=== PATIENT | female | born 1990 | race Two or more races ===

== ENCOUNTER 2018-12-03 09:15 | Emergency (ER) | payer SELFPAY ==
[2018-12-03 09:16] VITALS: BP 103/74; PULSE 67; RESP 17; TEMP 36.8; O2SAT 100; BMI 16.2
--- NOTE | 2018-12-03 09:26 | ED.DCSUM_ITS ---
History of Present Illness Chief Complaint: Lower Extremity Injury Informant: Patient Onset: Days Narrative: Patient presents to the ED with right heel pain. 4 days ago, she broke several of her metatarsal bones and states that this is going to require surgery. 3 days ago, she was seen by orthopedic physician at [facility] in [place]. She states that a cast was placed and since then she has had pain predominantly in her right heel. She describes as a burning pain. She is prescribed oxycodone for pain. Her last dose was around 8-1/2 hours ago. She does have a follow-up appointment with them again tomorrow. Past Medical History - Allergies and Home Meds Allergies/Adverse Reactions: Allergies No Known Allergies Allergy (Verified 12/03/18 09:16) Primary Care Physician: Care Physician,No Primary [Primary Care Provider] - Review of Systems General: Denies: Chills, Fever, Sweats Eyes: Denies: Visual changes - bilaterally, Diplopia ENT: Denies: Rhinorrhea, Sore throat Cardiovascular: Denies: Chest pain, Palpitations Respiratory: Denies: Dyspnea, Cough, Dyspnea on exertion Gastrointestinal: Denies: Abdominal pain, Nausea, Vomiting, Diarrhea, Melena, Hematochezia Genitourinary: Denies: Dysuria, Hematuria, Frequency Musculoskeletal: Reports: - - Heel pain.. Denies: Back pain, Extremity Pain Skin: Denies: Rash, Wounds Neurological: Denies: Headache, Weakness, Numbness Physical Exam Vital Signs/Narrative: Vital Signs Temp Pulse Resp BP Pulse Ox 12/03/18 09:16 98.3 F 67 17 103/74 100 General: Well nourished, Well developed, No Acute Distress Head: Normocephalic, Atraumatic Eyes: Perrl, EOMI ENT: Moist mucous membranes, No rhinorrhea Neck: Supple, Nontender Cardiovascular: Regular rate, Regular rhythm, No murmurs Respiratory: No distress, CTA bilaterally, Chest nontender Abdomen: Soft, Nontender, Nondistended, Normal bowel sounds Back: Nontender, Normal Inspection Extremities: Nontender, No edema, - - Cast extending from the right foot up to just distal to the right knee. It is clean dry and intact. Normal capillary refill of right toes. Normal sensation of right toes. Right toes are pink and warm. Skin: Normal color, No rash Neurological: Alert, Oriented x3, Cranial nerves II-XII grossly intact, Normal Strength, Normal Sensation Psychological: Normal affect, Normal Mood Diagnostic/Tx/Re-eval - Medical Decision Making Presents to the ED with right heel pain due to her cast. She has had issues since cast placement. She has a follow-up appointment tomorrow with her orthopedic physician at [facility]. Cast was removed in the ED. She states that she did speak with the on-call orthopedic physician who states that she may wear her walking boot until tomorrow for her appointment where another cast will be placed. Patient is nonweightbearing. She has a scooter. Her right heel is slightly erythematous and dry after removing the cast, however there is no skin breakdown. Patient will wear her boot and remain nonweightbearing. She was educated on signs/symptoms to return to the ED. She is provided discharge instructions and agreeable to plan. Impression: Right heel pain. Cast pain. Cast removal in ED. Disposition: Home stable ED Disposition - Plan for ED Patient: Disposition: Home or Assisted Living Diagnosis: Heel pain, Encounter for cast removal Instructions: Understanding Heel Pain Referrals: Care Physician,No Primary [Primary Care Provider] -
[2018-12-03 10:09] VITALS: BP 107/79; PULSE 63; RESP 16; O2SAT 99
--- NOTE | 2018-12-03 10:18 | ED.RN ---
CAST REMMOVED PER PA AND PT WITH IMMEDIATE RELEIF OF PRESSURE AND PAIN RT HEEL
== END 2018-12-03 11:44 | disposition home or self-care (01) ==
PROVIDERS: Emergency Provider Physician Assistant
DX: M79.671 Pain in right foot (principal); Z46.89 Encounter for fitting and adjustment of other specified devices
CPT/HCPCS: 99282

== ENCOUNTER 2019-04-05 18:30 | Outpatient (RCR) | payer BC, SELFPAY ==
--- NOTE | 2019-03-22 16:28 | HP.PTEVAL_ITS ---
Patient's Visit Information SRINIVASA PICKETT is a 28 year old F referred to Physical Therapy by DO STARKS with a diagnosis of R foot surgery. Date of Evaluation: 03/22/19 Physical Therapist: Jonathan Alvarenga, PT, ATC - Visit Plan Frequency: 1x/Week Duration: 1 Week Plan: Issue and instruct pt with HEP for R ankle and foot strengthening - Subjective Findings: Pt reports she fell while walking her dog in 2018. Pt reports this resulted in fractures to her 2-3-4th metatarsals. Pt reports she had to have surgery to repaitr the fractures consisting of plates and screws. Pt reports she was NWBing for 8 weeks, and then was placed in a CAM boot for 4 weeks. Pt notes she has been walking around in a shoe now for 4 weeks. Pt feels like she is still improving. Pt reports she continues to swell with prolonged ambulation, and her foot will go numb. Pt reports she has been performing a HEP of band ex's and AROM. Pt reports she is unable to drive at this time secondary to pain. Pt has stairs that she has to negotiate one step at a time. Pt reports she also has to walk slow secondary to pain. No sleep difficulty secondary to pain. - Pain R foot pain Pain Intensity (Out of 10): 0 Pain Intensity Range: 4 - Objective Neuro: B LE sensation is WNL to light touch. Palpation: Incisions are healed. No swelling noted this date. Girth: B feet 46 cm. ROM: L ankle DF= 15, PF= 55; R ankle DF= 0, PF= 55 degrees. MMT: 4/5 throughout in R ankle. L ankle 5/5 throughout - Goals Goal 1:: I with HEP in 1 visit Goal Time Frame: 1 Week - Rehabilitation Potential Physical Therapy Diagnosis: R foot pain, limited ROM, and weakness secondary to R foot surgery Rehabilitation Potential: Good - Anticipated Interventions Patient/Client Instruction: Educate patient on: Condition, Plan of Care For the Purpose of:: To improve self management Therapeutic Exercise to Include: Strength training, Endurance training, Balance training, Flexibilty training, Active ROM For the Purpose of:: To decrease pain, To increase ROM, To improve muscle performance and motor function Cryotherapy (ice pack, ice massage): Yes For the Purpose of:: To decrease pain Thank you for the opportunity to evaluate your patient. For Medicare and Medicare HMO plans, please review the plan of care and approve it. It will need to be FAXED BACK to us at [phone] for Medicare purposes. For Medicare only, by signing this I certify the plan of care. Please let me know if there are questions or concerns regarding this plan of care. Physician Signature: ____Date:
--- NOTE | 2019-06-07 18:59 | HP.PT.NRP ---
SRINIVASA PICKETT was seen in my office for initial evaluation on 03/22/19. The following Plan of Care was established for this patient: Initial Frequency: 1x/Week Initial Duration: 1 Week Patient/Client Instruction: Educate patient on: Condition, Plan of Care For the Purpose of:: To improve self management Therapeutic Exercise to Include: Strength training, Endurance training, Balance training, Flexibilty training, Active ROM For the Purpose of:: To decrease pain, To increase ROM, To improve muscle performance and motor function Cryotherapy (ice pack, ice massage): Yes For the Purpose of:: To decrease pain This patient was last seen in our office . Pertinent comments regarding their Physical therapy will appear below: Pt has had 2 PT visits for her R foot pain through the date of 04/05/2019. Pt has not returned through todays date and is therefore discontinued at this time. At this point I will be discontinuing this patient from physical therapy. I would be happy to see this patient again in the future if found appropriate by the physician. Thank you! Jonathan Alvarenga, PT, ATC
== END 2019-04-05 19:00 | disposition home or self-care (01) ==
LOC: PT 18:30
DX: Z98.890 Other specified postprocedural states (principal); S92.321D Displaced fracture of second metatarsal bone, right foot, subsequent encounter for fracture with routine healing; S92.331D Displaced fracture of third metatarsal bone, right foot, subsequent encounter for fracture with routine healing; S92.341D Displaced fracture of fourth metatarsal bone, right foot, subsequent encounter for fracture with routine healing
CPT/HCPCS: 97110; 97161; 97530

== ENCOUNTER → 2021-10-19 | Outpatient (CLI) | payer OTHER, SELFPAY ==
[2021-10-19 12:01] LABS: Absolute Lymphocyte Count 0.97 X10^3/uL (0.83-4.51); Absolute Neutrophil Count 2.3 X10^3/uL (2.0-7.7); Basophil# 0.01 X10^3/uL; Basophil% 0.3 % (0-1); Hematocrit 37.3 % (37-47); Hemoglobin 12.1 g/dL (12.0-15.0); Lymphocyte # 0.97 X10^3/ul (0.83-4.51); Lymphocyte % 26.6 % (19-41); Mean Corp Hgb Conc 32.4 g/dL (32-36); Mean Corpuscular Hgb 28.1 pg (27.0-32.0); Mean Corpuscular Volume 86.5 fL (81-99); Mean Platelet Vol. 10.8 fl (6.2-12.0); Monocyte# 0.39 X10^3/uL; Monocyte% 10.7 % (0-10); NRBC Flagged by Analyzer 0 % (0-5); Neutrophil # 2.26 X10^3/uL (2.7-7.7); Neutrophil % 62.1 % (47-70); Platelet Count 237 K/mm3 (150-450); RBC Distribution Width CV 12.4 % (11.6-14.6); RBC Distribution Width SD 39.9 fl (35.1-43.9); Red Blood Count 4.31 M/mm3 (4.2-5.4); White Blood Count 3.6 K/mm3 (4.4-11.0)
[2021-10-19 13:01] LABS: ALB/GLOB Ratio 0.7 RATIO (0.9-2.4); AST(SGOT) 21 U/L (15-37); Alanine Aminotransfer ALT/SGPT 15 U/L (13-56); Albumin, Serum 3.5 g/dL (3.2-5.0); Alkaline Phosphatase 66 U/L (45-117); Anion Gap 5 (5-15); BUN 9 mg/dL (7-18); BUN/Creat Ratio 11.5 RATIO (10-20); Calcium,Total 8.5 mg/dL (8.5-10.1); Chloride 107 mmol/L (98-107); Creatinine, Serum 0.78 mg/dL (0.55-1.02); EST Glomerular Filtration Rate 91 mL/min (>60); Est Glom Filt Rate - Afr Amer 110 mL/min (>60); Globulin 5.2 g/dL (2.2-4.2); Glucose 92 mg/dL (74-106); Potassium 3.9 mmol/L (3.5-5.1); Protein, Total 8.7 g/dL (6.4-8.2); Sodium Level 137 mmol/L (136-145); Thyroid Stim Hormone (TSH) 0.45 uIU/mL (0.358-3.74)
== END | disposition home or self-care (01) ==
LOC: BIMLAB 11:26
PROVIDERS: PCP Internal Medicine; Referring Provider Internal Medicine; Visit Provider Internal Medicine
DX: R59.0 Localized enlarged lymph nodes (principal); R50.9 Fever, unspecified
CPT/HCPCS: 36415; 80053; 84443; 85025

== ENCOUNTER → 2021-10-22 | Outpatient (CLI) | payer OTHER, SELFPAY ==
--- NOTE | 2021-10-22 16:02 | US_ITS ---
EXAM: US SOFT TISSUES OF THE NECK CLINICAL INDICATION: lymphadenopathy TECHNIQUE: Real-time ultrasound scan of the soft tissues of the neck with image documentation. This report was created using [employer] report generation technology. COMPARISON: None. FINDINGS: SOFT TISSUES: Normal. No abscess. No foreign body. LYMPH NODES: Multiple large left posterior cervical lymph nodes are identified with normal vianca suggestive of lymphoproliferative disorder. Largest node measures 4.2 x 2.2 cm. US/Head/Neck Soft Tissue IMPRESSION: Posterior left cervical lymphadenopathy consistent with lymphoproliferative disorder. Follow-up recommended. Electronically Signed: Killian Camilo MD at 16:52 EDT ,
== END | disposition home or self-care (01) ==
PROVIDERS: PCP Internal Medicine; Referring Provider Internal Medicine; Visit Provider Internal Medicine
DX: R59.0 Localized enlarged lymph nodes (principal)
CPT/HCPCS: 76536

== ENCOUNTER 2021-10-24 18:16 | Emergency (ER) | payer OTHER, SELFPAY ==
[2021-10-24 18:18] VITALS: BP 92/68; PULSE 74; RESP 22; TEMP 37.4; O2SAT 100; BMI 16.1
--- NOTE | 2021-10-24 18:33 | EDS_ITS ---
HPI History of Present Illness Chief Complaint: Fever Detail of Chief Complaint: Fever that started 2 weeks ago Informant: patient Narrative Narrative: Patient presents to the emergency department with a fever x2 weeks. Patient has been seen by her primary care physician because she has had swollen lymph nodes to the left side of her neck. Patient had blood work that apparently was unremarkable. Patient also had a monotest last week that was negative. Patient had an ultrasound that showed lymph low proliferative disorder and patient was referred to hematology for follow-up. Significant other insisted patient be evaluated in the ER today because she has had temperatures between 100 101 despite ibuprofen and Tylenol. Patient started with a little bit of a cough yesterday. She denies sore throat. She denies urinary symptoms. Patient denies rashes. No family history of autoimmune disorders. Patient has had the COVID-vaccine. Patient denies sick contacts. Prior similar symptoms: No PFSH PFSH Medical History (Updated 10/24/21 @ 20:[address] Jasen Bennett DO) History of anemia as a child Home Medications amoxicillin 500 mg tablet 500 mg PO TID #30 tabs 10/24/21 [Rx Last Taken Unknown] Allergy/AdvReac Type Severity Reaction Status Date / Time No Known Allergies Allergy Verified 10/19/21 10:29 Family History Grandmother Arthritis Heart disease Myocardial infarction Grandfather Arthritis Diabetes Mother Thyroid disorder Surgical History H/O foot surgery Social History (Updated 10/19/21 @ 10:[address] Halle Darby MD) household members: spouse housing: house current occupational status: employed current occupation: [employer] sexually active: Yes Smoking Status: Never smoker Electronic Cigarette Use: not used alcohol intake: current alcohol intake frequency: holidays/special occasions only substance use type: does not use what type of physical activity do you participate in: walking and weight training frequency: 3-4 times per week seatbelt use: always do you feel safe at home: Yes ROS ROS ED ROS Narrative Fatigue Review of Systems ROS Unobtainable: other Constitutional Constitutional ED: Reports fever(s) and lethargy; Denies chills, sweats or weight loss Eyes Eyes: Denies blurry vision, change in vision or diplopia ENT ENT ED: Reports other Details: Swollen lymph nodes ; Denies rhinorrhea or sore throat Cardiovascular Cardiovascular: Denies chest pain, orthopnea or racing heartbeat Respiratory/Chest Respiratory/Chest: Reports cough; Denies dyspnea, dyspnea on exertion, orthopnea or sputum Gastrointestinal Gastrointestinal: Denies abdominal pain, diarrhea, nausea or vomiting Genitourinary Genitourinary ED: Denies dysuria, hematuria or urinary frequency Musculoskeletal Musculoskeletal: Denies arthralgias, back pain, myalgias or neck pain Integumentary Denies abscess, Abrasions or rash Neurologic Neurologic: Denies headache(s) or weakness Psychiatric Psychiatric: Denies anxiety, depression or suicidal thoughts Endocrine Endocrinology: Denies polydipsia, polyphagia or polyuria Hematologic/Lymphatic Hematologic/Lymphatic: Denies easy bleeding, easy bruising or lymphadenopathy Allergic/Immunologic Allergic/Immunologic ED: Denies mouth swelling, tongue swelling or urticaria EXAM Physical Exam Const Vital Signs: 10/24/21 18:18 10/24/21 18:47 Temperature 99.3 F H Temperature Source Oral Pulse Rate 74 Respiratory Rate 22 H Respiratory Effort Normal Non-Labored Respiratory Pattern Normal Blood Pressure 92/68 Blood Pressure Mean 76 Pulse Ox 100 Oxygen Delivery Method Room Air Positive well nourished and well developed General Appearance ED: well developed and NAD HEENT Reports TM's clear and moist mucous membranes normocephalic and atraumatic; Negative for trauma or tenderness Tympanic Membrane ED: Yes TM's clear Eyes PERRL and EOMs intact bilaterally General Eye ED: Negative for pale conjunctiva or scleral icterus Neck supple and no JVD Neck Narrative: Bilateral posterior cervical lymphadenopathy noted General: Negative for tenderness Chest Wall inspection of chest normal and palpation of chest normal Chest: Negative for tenderness Resp normal respiratory effort and clear to auscultation bilaterally Effort and Inspection: Negative for respiratory distress or pain with movement Auscultation: Negative for rhonchi, wheezes or diminished lung sounds Cardio regular rate, regular rhythm, S1 normal heart sound, S2 normal heart sound and no murmurs Peripheral Pulses: pulses 2+ throughout GI normal to inspection, nondistended, normoactive bowel sounds, soft to palpation, non-tender, non-distended and no masses Back/Spine no CVA tenderness and no thoracic nor lumbar tenderness Extremity normal to inspection General Extremety ED: Negative for edema General Extremity: Negative for edema Neuro oriented x3, CN's II-XII intact bilaterally, no sensory deficits noted and gait normal Sensorium / Orientation: awake, alert, oriented to person, oriented to place and oriented to time Motor Exam: strength 5/5 throughout and strength abnormal Psych mental status grossly normal Skin no rashes or lesions noted and no wounds MDM MDM MDM Narrative Medical decision making narrative: IV line established on arrival. CBC with differential showed a depressed white count of 3.7. Chemistries unremarkable. Kemper screen was negative. Influenza screen was negative and COVID screen was negative. Urinalysis was normal. Chest x-ray was normal. This point etiology of her fever and lymphadenopathy is unclear. I will empirically start patient on antibiotics. We will treat with amoxicillin. Patient awaiting follow-up with specialist to potentially have biopsy of her lymph nodes. Patient is nontoxic-appearing. She denies any tick bites or bull's-eye type rashes. Patient will be discharged to home stable condition Lab Data Attestation: I reviewed the patient's lab results. Labs: Laboratory Results - last 24 hr 10/24/21 10/24/21 10/24/21 18:47 18:47 18:47 WBC 3.7 L RBC 3.84 L Hgb 10.5 L Hct 32.0 L MCV 83.3 MCH 27.3 MCHC 32.8 RDW Std Deviation 36.8 RDW Coeff of Lisa 12.1 Plt Count 211 MPV 10.5 Immature Gran % (Auto) 0.300 Neut % (Auto) 58.2 Lymph % (Auto) 32.9 Kemper % (Auto) 8.1 Eos % (Auto) 0.0 Baso % (Auto) 0.5 Absolute Neuts (auto) 2.2 Absolute Lymphs (auto) 1.22 Nucleated RBC % 0 Differential Comment SCANNED Atypical Lymphocytes RARE Platelet Estimate ADEQUATE Ovalocytes 1+ Sodium 136 Potassium 3.9 Chloride 106 Carbon Dioxide 25.0 Anion Gap 5 BUN 10 Creatinine 0.87 Estim Creat Clear Calc 64.48 Est GFR (MDRD) Af Amer 97 Est GFR (MDRD) Non-Af 80 BUN/Creatinine Ratio 11.5 Glucose 102 Calcium 8.6 Urine Color Urine Clarity Urine pH Ur Specific [place] Urine Protein Urine Glucose (UA) Urine Ketones Urine Occult Blood Urine Nitrite Urine Bilirubin Urine Urobilinogen Ur Leukocyte Esterase Urine RBC Urine WBC Ur Squamous Epith Cells Urine Bacteria Urine Mucus Monoscreen Negative 10/24/21 18:53 WBC RBC Hgb Hct MCV MCH MCHC RDW Std Deviation RDW Coeff of Lisa Plt Count MPV Immature Gran % (Auto) Neut % (Auto) Lymph % (Auto) Kemper % (Auto) Eos % (Auto) Baso % (Auto) Absolute Neuts (auto) Absolute Lymphs (auto) Nucleated RBC % Differential Comment Atypical Lymphocytes Platelet Estimate Ovalocytes Sodium Potassium Chloride Carbon Dioxide Anion Gap BUN Creatinine Estim Creat Clear Calc Est GFR (MDRD) Af Amer Est GFR (MDRD) Non-Af BUN/Creatinine Ratio Glucose Calcium Urine Color Yellow Urine Clarity Sl. Cloudy Urine pH 6.5 Ur Specific [place] 1.010 Urine Protein 100 H Urine Glucose (UA) Normal Urine Ketones Negative Urine Occult Blood Negative Urine Nitrite Negative Urine Bilirubin Negative Urine Urobilinogen Normal Ur Leukocyte Esterase Negative Urine RBC 0 SEEN Urine WBC 0 SEEN Ur Squamous Epith Cells 0-5 SEEN Urine Bacteria 0 SEEN Urine Mucus 0 SEEN Monoscreen Radiography Diagnostic Testing: Clinical Impression(s) from Imaging Studies Chest X-Ray 10/24/21 18:58 IMPRESSION: Normal x-ray examination of the chest. Electronically Signed: Robbie Thomposn MD at 19:14 EDT , Discharge Plan Triage Chief Complaint: Fever ED Provider: Jasen Bennett Dx/Rx/DC Orders Clinical Impression: Cervical lymphadenopathy, Fever Instructions: Lymphadenopathy, ED FUO Adult Prescriptions: New amoxicillin 500 mg tablet 500 mg PO TID Qty: 30 0RF Primary Care Provider: Halle Darby Referrals: Halle Darby MD [Primary Care Provider] - 3-5 Days Disposition Disposition: Home, Self Care
[2021-10-24] MEDS: 0.9% Normal Saline 1,000 ML 1000 ML IV (18:47)
[2021-10-24 18:58] LABS: Absolute Lymphocyte Count 1.22 X10^3/uL (0.83-4.51); Absolute Neutrophil Count 2.2 X10^3/uL (2.0-7.7); Basophil# 0.02 X10^3/uL; Basophil% 0.5 % (0-1); Hemoglobin 10.5 g/dL (12.0-15.0); Lymphocyte # 1.22 X10^3/ul (0.83-4.51); Lymphocyte % 32.9 % (19-41); Mean Corp Hgb Conc 32.8 g/dL (32-36); Mean Corpuscular Hgb 27.3 pg (27.0-32.0); Mean Corpuscular Volume 83.3 fL (81-99); Mean Platelet Vol. 10.5 fl (6.2-12.0); Monocyte% 8.1 % (0-10); NRBC Flagged by Analyzer 0 % (0-5); Neutrophil # 2.16 X10^3/uL (2.7-7.7); Neutrophil % 58.2 % (47-70); POSITIVE MORPHOLOGY YES; Platelet Count 211 K/mm3 (150-450); RBC Distribution Width CV 12.1 % (11.6-14.6); RBC Distribution Width SD 36.8 fl (35.1-43.9); Red Blood Count 3.84 M/mm3 (4.2-5.4); White Blood Count 3.7 K/mm3 (4.4-11.0)
--- NOTE | 2021-10-24 18:58 | RAD_ITS ---
STUDY: X-RAY CHEST REASON FOR EXAM: Female, 31 years old. cough TECHNIQUE: Single AP portable view of the chest. COMPARISON: None. FINDINGS: The lungs are clear and expanded. There is no demonstrated pleural abnormality. Normal size heart. Normal mediastinum and vianca. Normal visualized pulmonary arteries. Normal visualized aortic arch and descending thoracic aorta. Normal visualized thoracic spine. Normal visualized ribs, clavicles, and shoulders. There is no demonstrated abnormality of the visualized soft tissue structures of the upper abdomen. RAD/Chest 1 View (Portable) IMPRESSION: Normal x-ray examination of the chest. Electronically Signed: Robbie Thompson MD at 19:14 EDT ,
[2021-10-24 19:00] LABS: Differential Indicated SCAN CRITERIA MET
[2021-10-24 19:01] LABS: Bacteria 0 SEEN /hpf (None Seen); Mucous, Urine 0 SEEN /hpf (<or=2+); Red Blood Cells-Urine 0 SEEN /hpf (0-5); White Blood Cells 0 SEEN /hpf (0-5)
[2021-10-24 19:11] LABS: Internal QC Validated? YES +Cl - CLEAR BKGD; Monotest Negative (Negative)
[2021-10-24 19:15] LABS: Anion Gap 5 (5-15); BUN 10 mg/dL (7-18); BUN/Creat Ratio 11.5 RATIO (10-20); Calcium,Total 8.6 mg/dL (8.5-10.1); Chloride 106 mmol/L (98-107); Creatinine, Serum 0.87 mg/dL (0.55-1.02); EST Glomerular Filtration Rate 80 mL/min (>60); Est Glom Filt Rate - Afr Amer 97 mL/min (>60); Estimated Creatinine Clearance 64.48 ml/min; Glucose 102 mg/dL (74-106); Potassium 3.9 mmol/L (3.5-5.1); Sodium Level 136 mmol/L (136-145)
[2021-10-24 19:21] LABS: Color, Urine Yellow (Yellow); Glucose, Dipstick Normal (Normal); Ketone-Dipstick Negative (Negative); Leukocyte Esterase-Dipstick Negative /ul (Negative); Nitrite-Dipstick Negative (Negative); Occult Blood-Urine Negative /ul (Negative); Protein-Dipstick 100 mg/dl (Negative); Urine Bilirubin Dipstick Negative (Negative); Urine Clarity Sl. Cloudy (Clear); Urine Urobilinogen Normal (Normal); Urine pH 6.5 (5.0 - 8.0)
[2021-10-24 19:37] LABS: Atypical Lymphocyte RARE %; Differential Comment SCANNED
[2021-10-24 19:38] LABS: Ovalocyte 1+; Platelet Estimate ADEQUATE (ADEQ)
[2021-10-24 19:38] LABS: Squamous Epithelial Cells - UA 0-5 SEEN /hpf (5-10)
[2021-10-24] MEDS: AMOXICILLIN 500 MG CAPSULE PO (20:42)
[2021-10-24 20:43] VITALS: BP 90/56; PULSE 59; RESP 16; TEMP 36.6; O2SAT 100
== END 2021-10-24 20:46 | disposition home or self-care (01) ==
PROVIDERS: Emergency Provider Emergency Medicine; PCP Internal Medicine; Visit Provider Emergency Medicine
DX: R59.0 Localized enlarged lymph nodes (principal); R50.9 Fever, unspecified
CPT/HCPCS: 36415; 71045; 80048; 81001; 85025; 86308; 87040; 87428; 96360; 96361; 99284; J7030; A4216

== ENCOUNTER → 2021-10-30 | Outpatient (CLI) | payer OTHER, SELFPAY ==
--- NOTE | 2021-10-30 13:22 | CT_ITS ---
STUDY: CT SOFT TISSUE NECK WITH CONTRAST REASON FOR EXAM: Female, 31 years old. Weight loss, cervical lymphadenopathy RADIATION DOSAGE (If Supplied By Facility): CTDIvol = ( 10.82 ) mGy, DLP = ( 314.95 ) mGycm TECHNIQUE: The patient was scanned in a multi-detector CT scanner. High resolution transaxial imaging was performed following intravenous administration of IV 100mL Isovue-300. Sagittal and coronal images were reconstructed. Individualized dose optimization techniques were used for this CT. COMPARISON: Comparison is made with prior CT scan of the neck dated 10/22/2021. FINDINGS: Normal bilateral parotid glands. Normal bilateral supervisor plastic sheets spaces. Normal bilateral parapharyngeal spaces. Normal bilateral carotid spaces. Normal bilateral sublingual and submandibular glands and spaces. Normal visualized nasopharynx. Normal retropharyngeal space. Normal perivertebral space. Normal visualized bilateral faucial tonsils. The visualized tongue, tongue base and oropharynx are normal. Multiple enlarged enhancing lymph nodes seen in the posterior triangle of the right and left side of the neck. The largest on the left side measures 2.1 cm x 1.3 cm. The largest on the right side measures 1.5 cm x 0.8 cm. This also is about 1.5 cm x 1.6 cm lymph node in the anterior triangle of the left-sided neck adjacent to the anterior aspect of the left sternocleidomastoid mastoid muscle. There is no demonstrated solid or cystic mass lesion. There is no abnormal contrast enhancement. Normal epiglottis, bilateral vallecula and hypopharynx. The pre-epiglottic and paraglottic adipose spaces are normal. Normal visualized bilateral piriform sinuses, aryepiglottic folds, vocal cords, and arytenoid-cricoid articulations. Normal subglottic trachea. Normal bilateral lobes of the thyroid gland. Normal visualized pulmonary apices. Normal visualized paranasal sinuses. Normal visualized cervical spine. CT/Soft Tissue Neck WITH Contrast IMPRESSION: Cervical lymphadenopathy as described. There is contrast enhancement. Electronically Signed: Sahil Gay MD at 14:11 EDT ,
--- NOTE | 2021-10-30 13:22 | CT_ITS ---
STUDY: CT CHEST WITH CONTRAST REASON FOR EXAM: Female, 31 years old. Weight loss, lymphadenopathy RADIATION DOSAGE (If Supplied By Facility): CTDIvol = ( 10.82 ) mGy, DLP = ( 314.95 ) mGycm TECHNIQUE: Transaxial imaging was performed following intravenous administration of IV 100mL Isovue-300. Multiplanar coronal and sagittal images were reformatted. Individualized dose optimization techniques were used for this CT. COMPARISON: No relevant priors. FINDINGS: CHEST The lungs are normal. There is no demonstrated pleural abnormality. Normal heart and pericardium. Normal mediastinum. Normal hilar regions. Normal unenhanced pulmonary arteries. Normal aorta arch and descending thoracic aorta. Normal osseous structures. There is no demonstrated abnormality of the visualized upper abdomen. CT/Chest WITH Contrast IMPRESSION: Normal enhanced CT chest T abdomen examination. Electronically Signed: Sahil Gay MD at 14:13 EDT ,
== END | disposition home or self-care (01) ==
LOC: CT 13:20
PROVIDERS: PCP Internal Medicine; Referring Provider Internal Medicine; Visit Provider Internal Medicine
DX: R59.0 Localized enlarged lymph nodes (principal); R50.9 Fever, unspecified; R63.4 Abnormal weight loss
CPT/HCPCS: 70491; 71260; Q9967

== ENCOUNTER → 2021-11-11 | Outpatient (CLI) | payer OTHER, SELFPAY ==
--- NOTE | 2021-11-11 | ASPOS_PTH ---
PATIENT: SRINIVASA PICKETT LOC: [facility] U#:[id number] AGE/SX: 31/F ROOM: RE11/11/[address]: Dr. Richard Solis MD : 1990 BED: DIS: 11/11/2021 SPEC #: [id number] RECD: 11/11/21 10:51 STATUS: VIDA LAY #: [id number] KEVYN: 11/11/21 00:[address]: Richard Solis DEPT: CYTOLOGY RECD BY: Nancy Newton ENTERED: 11/11/21 10:52 SP TYPE: ASP HERE OTHR DR: Dr. Halle Darby MD Tissues: Lymph node of neck, NOS Procedures: Surgery Specimen Level IV Cytology Other Fine Needle Asp on Site HEADER OPERATION: Fine needle aspiration left posterior neck mass PRE-OP DIAGNOSIS: Left posterior neck mass TISSUE SUBMITTED: Left posterior neck mass FNA DIAGNOSIS CYTOLOGY Left posterior neck mass, fine needle aspiration (smears and cell block): Lymph node tissue with polymorphous lymphocytes. See comment. SJ:bj 11/13/2021 COMMENT The specimen is evaluated at the time of FNA by Dr. Gomez. Immediate Evaluation = Polymorphous lymphocytes present. Flow cytometry study from [facility] shows no evidence of B-cell or T-cell lymphoma. Please see the complete report in EMR. Correlation with clinical findings and appropriate follow up are necessary. Incisional or excisional biopsy of the mass is suggested if clinically indicated. Case has been reviewed in consultation with Dr. Gomez who concurs with the above diagnosis. IDC:AM CYTOLOGY STUDY Slides are reviewed. CYTOLOGY GROSS Received is 30 ml of CytoLyt labeled with the patient's name, and designated left posterior neck mass. Two imprints and two paps are made from the submitted fluid and the rest is added to CytoLyt for cell block preparation. Submitted for cytology study. / AM:bj 11/11/2021 TC:5 CPT: 93468, 57342, 65832
== END | disposition home or self-care (01) ==
LOC: LAB 09:30
PROVIDERS: PCP Internal Medicine; Referring Provider Otolaryngology; Visit Provider Otolaryngology
DX: R59.9 Enlarged lymph nodes, unspecified (principal)
CPT/HCPCS: 10021; 88161; 88305; 88307

== ENCOUNTER → 2021-12-09 | Outpatient (CLI) | payer OTHER, SELFPAY ==
--- NOTE | 2021-12-09 10:50 | MRI_ITS ---
STUDY: MRI BRAIN WITH AND WITHOUT CONTRAST REASON FOR EXAM: Female, 31 years old. R eye visual impairment; headache; Kikuchi disease TECHNIQUE: Standardized multiplanar fat and water weighted pulse sequences were obtained. IV 9 cc clariscan was administered for the contrast portion of the examination. COMPARISON: None. FINDINGS: Normal size of the ventricles and extra-axial spaces for the patient''s age. There is mild periventricular white matter disease with tiny foci of restricted diffusion in the left frontal, parietal and right parietal lobes.. There are numerous punctate foci of increased signal intensity within the basal ganglia and caudate nuclei bilaterally which may be consistent with subacute hemorrhage. There is diffusely increased signal intensity within the basal ganglia and caudate nuclei bilaterally. Normal thalami. There is no extra-axial fluid accumulation. Normal flow voids within the major intracranial circulation suggesting patency by spin echo criteria. Normal venous enhancement. There is no enhancing intra-axial or extra-axial abnormality. Normal sella turcica, pituitary gland, infundibular stalk, optic chiasm and hypothalamus. Normal tectal plate and pineal gland. Normal midbrain, chung and medulla. Normal cerebellum. Normal basal cisterns. Normal bilateral temporal bones. Normal bilateral internal auditory canals. No demonstrated orbital abnormality, within the constraints of a routine brain study. Normal visualized paranasal sinuses. Normal calvarium and skull base. Normal visualized soft tissue structures. Normal visualized upper cervical spine. MRI/Brain W/WO Contrast IMPRESSION: Bilateral diffuse increased signal within the basal ganglia and caudate nuclei in association with diffuse punctate foci of methemoglobin on T1 consistent with subacute hemorrhage.. There is also mild periventricular white matter disease with tiny foci of restricted diffusion bilaterally. 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
== END | disposition home or self-care (01) ==
PROVIDERS: PCP Internal Medicine; Visit Provider Psychiatry & Neurology Neurology
DX: H54.7 Unspecified visual loss (principal); R51.9 Headache, unspecified
CPT/HCPCS: 70553; A9575

== ENCOUNTER → 2021-12-31 | Outpatient (CLI) | payer OTHER, SELFPAY ==
--- NOTE | 2021-12-31 15:57 | MRI_ITS ---
STUDY: MRA OF THE HEAD WITHOUT CONTRAST REASON FOR EXAM: Female, 31 years old. Kikuchi disease; Abnl MRI; eval for vasculitis TECHNIQUE: 3-D [id number] (TOF) imaging was performed with MIPs. The study was performed unenhanced. COMPARISON: None. FINDINGS: Normal bilateral petrous carotid arteries. Normal right cavernous carotid artery with a normal supraclinoid bifurcation. Normal left cavernous carotid artery with a normal supraclinoid bifurcation. Normal right A1 segments of the anterior cerebral artery. Normal left A1 segments of the anterior cerebral artery. Normal intact anterior communicating artery (ACOM). Normal bilateral A2 segments of the anterior cerebral arteries. Normal right M1 and M2 segments of the middle cerebral arteries, with a normal M1 bifurcation. Normal left M1 and M2 segments of the middle cerebral arteries, with a normal M1 bifurcation. Right posterior communicating artery not visualized consistent with normal variant). Normal left posterior communicating artery (PCOM). Normal bilateral vertebral arteries. Normal basilar artery with a normal basilar bifurcation. The visualized bilateral superior cerebellar (SCA) arteries are normal. Normal right posterior cerebral artery. Hypoplastic left posterior cerebral artery with regional perfusion augmentation by left posterior communicating artery. There is no demonstrated aneurysm of the [place]. There is no major vessel occlusion or hemodynamically significant stenosis. There is no demonstrated abnormality of the visualized brain. MRI/MRA Head ONLY without Contrast IMPRESSION: Normal MRA of the head Electronically Signed: Shaji Mandujano MD at 17:23 EDT ,
--- NOTE | 2021-12-31 16:04 | MRI_ITS ---
STUDY: MRI BRAIN WITH AND WITHOUT CONTRAST REASON FOR EXAM: Female, 31 years old. Kikuchi dz; follow-up microhemorrhages/white matte TECHNIQUE: Standardized multiplanar fat and water weighted pulse sequences were obtained. IV 9CC IVYESCLARISC was administered for the contrast portion of the examination. COMPARISON: 12/09/2021 FINDINGS: Normal size of the ventricles and extra-axial spaces for the patient''s age. There is very mild periventricular white matter ischemic disease without evidence for restricted diffusion at this time.. Diffusely increased signal intensity noted within the basal ganglia and caudate nuclei bilaterally in association with subtle foci of methemoglobin consistent with microhemorrhage. There is no extra-axial fluid accumulation. Normal flow voids within the major intracranial circulation suggesting patency by spin echo criteria. Normal venous enhancement. No significant enhancement demonstrated following contrast administration Normal sella turcica, pituitary gland, infundibular stalk, optic chiasm and hypothalamus. Normal tectal plate and pineal gland. Normal midbrain, chung and medulla. Normal cerebellum. Normal basal cisterns. Normal bilateral temporal bones. Normal bilateral internal auditory canals. No demonstrated orbital abnormality, within the constraints of a routine brain study. Normal visualized paranasal sinuses. Normal calvarium and skull base. Normal visualized soft tissue structures. Normal visualized upper cervical spine. Comparison with prior exam demonstrates similar findings although there is slightly less intense signal intensity noted within the basal ganglia when compared with previous exam There is reduction in the restricted diffusion in previously noted white matter lesions MRI/Brain W/WO Contrast IMPRESSION: Persistent findings consistent with known KIKUCHI disease with reduction of signal intensity in the basal ganglia when compared with prior exam. No significant enhancement following contrast demonstration There has been resolution of the restricted diffusion within the white matter lesions noted on prior study Electronically Signed: Shaji Mandujano MD at 17:21 EDT ,
== END | disposition home or self-care (01) ==
PROVIDERS: PCP Internal Medicine; Visit Provider Psychiatry & Neurology Neurology
DX: I88.1 Chronic lymphadenitis, except mesenteric (principal); Z86.73 Personal history of transient ischemic attack (TIA), and cerebral infarction without residual deficits
CPT/HCPCS: 70544; 70553; A9575

== ENCOUNTER → 2022-03-09 | Outpatient (CLI) | payer OTHER, SELFPAY ==
[2022-03-09 18:03] LABS: Absolute Lymphocyte Count 1.63 X10^3/uL (0.83-4.51); Absolute Neutrophil Count 5.3 X10^3/uL (2.0-7.7); Basophil# 0.02 X10^3/uL; Basophil% 0.3 % (0-1); Eosinophil# 0.05 X10^3/uL; Eosinophils% 0.6 % (0-5); Hematocrit 38.7 % (37-47); Hemoglobin 12.3 g/dL (12.0-15.0); Lymphocyte # 1.63 X10^3/ul (0.83-4.51); Mean Corp Hgb Conc 31.8 g/dL (32-36); Mean Corpuscular Hgb 27.3 pg (27.0-32.0); Mean Corpuscular Volume 85.8 fL (81-99); Mean Platelet Vol. 10.5 fl (6.2-12.0); NRBC Flagged by Analyzer 0 % (0-5); Neutrophil # 5.34 X10^3/uL (2.7-7.7); Neutrophil % 68.7 % (47-70); Platelet Count 382 K/mm3 (150-450); RBC Distribution Width CV 12.4 % (11.6-14.6); RBC Distribution Width SD 38.7 fl (35.1-43.9); Red Blood Count 4.51 M/mm3 (4.2-5.4); White Blood Count 7.8 K/mm3 (4.4-11.0)
[2022-03-09 18:08] LABS: Color, Urine Yellow (Yellow); Glucose, Dipstick Normal (Normal); Ketone-Dipstick 5 mg/dl (Negative); Leukocyte Esterase-Dipstick 25 /ul (Negative); Nitrite-Dipstick Negative (Negative); Occult Blood-Urine Negative /ul (Negative); Protein-Dipstick 15 mg/dl (Negative); Specific Gravity, Urine 1.015 (1.002-1.030); Urine Bilirubin Dipstick Negative (Negative); Urine Clarity Sl. Cloudy (Clear); Urine Urobilinogen Normal (Normal); Urine pH 6.5 (5.0 - 8.0)
[2022-03-09 18:32] LABS: ALB/GLOB Ratio 0.9 RATIO (0.9-2.4); AST(SGOT) 18 U/L (15-37); Alanine Aminotransfer ALT/SGPT 23 U/L (13-56); Albumin, Serum 3.7 g/dL (3.2-5.0); Alkaline Phosphatase 63 U/L (45-117); Anion Gap 7 (5-15); BUN 14 mg/dL (7-18); BUN/Creat Ratio 16.4 RATIO (10-20); CRP < 2.90 mg/L (0.0-3.0); Chloride 104 mmol/L (98-107); Creatinine, Serum 0.85 mg/dL (0.55-1.02); EST Glomerular Filtration Rate 82 mL/min (>60); Est Glom Filt Rate - Afr Amer 99 mL/min (>60); Globulin 4.3 g/dL (2.2-4.2); Glucose 83 mg/dL (74-106); Potassium 3.7 mmol/L (3.5-5.1); Sodium Level 138 mmol/L (136-145)
[2022-03-09 18:33] LABS: Erythrocyte Sedimentation Rate 27 mm/hr (0-30); Protein, Urine (Random) 37.4 mg/dL (<11.9); Protein:Creat Ratio 181 mg/g CRE (0-200)
[2022-03-12 18:27] LABS: Complement C3 119 mg/dL (82-167)
[2022-03-12 19:21] LABS: Anti-dsDNA Ab 13 IU/mL (0-9)
== END | disposition home or self-care (01) ==
LOC: MTLAB 14:48
PROVIDERS: PCP Internal Medicine; Referring Provider Internal Medicine Rheumatology; Visit Provider Internal Medicine Rheumatology
DX: I88.1 Chronic lymphadenitis, except mesenteric (principal); M32.9 Systemic lupus erythematosus, unspecified; D89.0 Polyclonal hypergammaglobulinemia; R50.9 Fever, unspecified
CPT/HCPCS: 36415; 80053; 81002; 82570; 84156; 85025; 85652; 86140; 86160; 86225

== ENCOUNTER → 2022-06-29 | Outpatient (CLI) | payer OTHER, SELFPAY ==
[2022-06-29 18:11] LABS: Absolute Lymphocyte Count 1.27 X10^3/uL (0.83-4.51); Absolute Neutrophil Count 3.8 X10^3/uL (2.0-7.7); Basophil# 0.02 X10^3/uL; Basophil% 0.3 % (0-1); Eosinophil# 0.02 X10^3/uL; Eosinophils% 0.3 % (0-5); Hematocrit 36.9 % (37-47); Lymphocyte # 1.27 X10^3/ul (0.83-4.51); Lymphocyte % 22.1 % (19-41); Mean Corp Hgb Conc 32.5 g/dL (32-36); Mean Corpuscular Hgb 27.3 pg (27.0-32.0); Mean Corpuscular Volume 83.9 fL (81-99); Mean Platelet Vol. 10.6 fl (6.2-12.0); Monocyte# 0.65 X10^3/uL; Monocyte% 11.3 % (0-10); NRBC Flagged by Analyzer 0 % (0-5); Neutrophil # 3.78 X10^3/uL (2.7-7.7); Neutrophil % 65.8 % (47-70); Platelet Count 282 K/mm3 (150-450); RBC Distribution Width SD 39.4 fl (35.1-43.9); White Blood Count 5.8 K/mm3 (4.4-11.0)
[2022-06-29 18:15] LABS: Color, Urine Yellow (Yellow); Glucose, Dipstick Normal (Normal); Ketone-Dipstick Negative (Negative); Leukocyte Esterase-Dipstick Negative /ul (Negative); Nitrite-Dipstick Negative (Negative); Occult Blood-Urine Negative /ul (Negative); Protein-Dipstick Negative (Negative); Specific Gravity, Urine 1.015 (1.002-1.030); Urine Bilirubin Dipstick Negative (Negative); Urine Clarity Clear (Clear); Urine Urobilinogen Normal (Normal)
[2022-06-29 18:20] LABS: Erythrocyte Sedimentation Rate 38 mm/hr (0-30)
[2022-06-29 18:30] LABS: ALB/GLOB Ratio 0.8 RATIO (0.9-2.4); AST(SGOT) 20 U/L (15-37); Alanine Aminotransfer ALT/SGPT 26 U/L (13-56); Albumin, Serum 3.6 g/dL (3.2-5.0); Alkaline Phosphatase 59 U/L (45-117); Anion Gap 5 (5-15); BUN 10 mg/dL (7-18); BUN/Creat Ratio 13.6 RATIO (10-20); CRP < 2.90 mg/L (0.0-3.0); Calcium,Total 9.2 mg/dL (8.5-10.1); Chloride 104 mmol/L (98-107); Creatinine, Serum 0.74 mg/dL (0.55-1.02); EST Glomerular Filtration Rate 97 mL/min (>60); Est Glom Filt Rate - Afr Amer 117 mL/min (>60); Globulin 4.5 g/dL (2.2-4.2); Glucose 83 mg/dL (74-106); Potassium 3.3 mmol/L (3.5-5.1); Protein, Total 8.1 g/dL (6.4-8.2); Sodium Level 133 mmol/L (136-145)
[2022-06-29 18:45] LABS: Protein, Urine (Random) 9.8 mg/dL (<11.9); Protein:Creat Ratio 180 mg/g CRE (0-200)
[2022-07-01 05:07] LABS: Complement C3 106 mg/dL (82-167)
[2022-07-01 14:09] LABS: Anti-dsDNA Ab 9 IU/mL (0-9)
== END | disposition home or self-care (01) ==
LOC: MTLAB 15:24
PROVIDERS: PCP Internal Medicine; Referring Provider Internal Medicine Rheumatology; Visit Provider Internal Medicine Rheumatology
DX: M32.9 Systemic lupus erythematosus, unspecified (principal); I88.1 Chronic lymphadenitis, except mesenteric; D89.0 Polyclonal hypergammaglobulinemia; R50.9 Fever, unspecified; Z79.899 Other long term (current) drug therapy
CPT/HCPCS: 36415; 80053; 81002; 82570; 84156; 85025; 85652; 86140; 86160; 86225

== ENCOUNTER → 2022-07-16 | Outpatient (CLI) | payer OTHER, SELFPAY ==
[2022-07-19 22:06] LABS: Chlamydia By Nucleic Acid AMP Negative (Negative); Gonococcus By Nucleic Acid AMP Negative (Negative)
[2022-07-25 13:07] LABS: HPV APTIMA, High Risk Negative (Negative)
== END | disposition home or self-care (01) ==
PROVIDERS: PCP Internal Medicine; Referring Provider Advanced Practice Midwife; Visit Provider Advanced Practice Midwife
DX: O09.90 Supervision of high risk pregnancy, unspecified, unspecified trimester (principal); Z3A.00 Weeks of gestation of pregnancy not specified; Z12.4 Encounter for screening for malignant neoplasm of cervix
CPT/HCPCS: 87086; 87491; 87591; 87624; 88175; G0145

== ENCOUNTER → 2022-07-29 | Outpatient (CLI) | payer OTHER, SELFPAY ==
[2022-07-29 16:19] LABS: Absolute Lymphocyte Count 1.44 X10^3/uL (0.83-4.51); Absolute Neutrophil Count 3.4 X10^3/uL (2.0-7.7); Basophil# 0.01 X10^3/uL; Basophil% 0.2 % (0-1); Eosinophil# 0.04 X10^3/uL; Eosinophils% 0.7 % (0-5); Hematocrit 32.3 % (37-47); Hemoglobin 10.7 g/dL (12.0-15.0); Lymphocyte # 1.44 X10^3/ul (0.83-4.51); Lymphocyte % 26.4 % (19-41); Mean Corp Hgb Conc 33.1 g/dL (32-36); Mean Corpuscular Hgb 27.6 pg (27.0-32.0); Mean Corpuscular Volume 83.2 fL (81-99); Mean Platelet Vol. 10.6 fl (6.2-12.0); Monocyte# 0.56 X10^3/uL; Monocyte% 10.3 % (0-10); NRBC Flagged by Analyzer 0 % (0-5); Neutrophil # 3.39 X10^3/uL (2.7-7.7); Neutrophil % 62.2 % (47-70); Platelet Count 249 K/mm3 (150-450); RBC Distribution Width CV 13.5 % (11.6-14.6); RBC Distribution Width SD 41.1 fl (35.1-43.9); Red Blood Count 3.88 M/mm3 (4.2-5.4); White Blood Count 5.5 K/mm3 (4.4-11.0)
[2022-07-29 16:24] LABS: Protein, Urine (Random) 27.3 mg/dL (<11.9); Protein:Creat Ratio 176 mg/g CRE (0-200)
[2022-07-29 16:40] LABS: ALB/GLOB Ratio 0.7 RATIO (0.9-2.4); AST(SGOT) 18 U/L (15-37); Alanine Aminotransfer ALT/SGPT 23 U/L (13-56); Albumin, Serum 3.3 g/dL (3.2-5.0); Alkaline Phosphatase 55 U/L (45-117); Anion Gap 8 (5-15); BUN 9 mg/dL (7-18); BUN/Creat Ratio 15.5 RATIO (10-20); Calcium,Total 9.1 mg/dL (8.5-10.1); Chloride 104 mmol/L (98-107); Creatinine, Serum 0.58 mg/dL (0.55-1.02); EST Glomerular Filtration Rate 127 mL/min (>60); Est Glom Filt Rate - Afr Amer 154 mL/min (>60); Globulin 4.5 g/dL (2.2-4.2); Glucose 90 mg/dL (74-106); Potassium 3.4 mmol/L (3.5-5.1); Protein, Total 7.8 g/dL (6.4-8.2); Sodium Level 135 mmol/L (136-145)
[2022-07-29 17:04] LABS: NATERA MAILED SPECIMEN
[2022-07-29 17:23] LABS: NATERA MAILED SPECIMEN
[2022-07-29 17:26] LABS: HIV - WCH Non-Reactive (Nonreactive); Hepatitis B Surface Antigen Non-Reactive (Nonreactive); Hepatitis C Antibody Non-Reactive (Nonreactive); Rubella IgG Reactive (Nonreactive); Syphilis Antibodies Non-reactive
[2022-08-02 14:08] LABS: Anti-Cardiolipin Ab, IgA, Qn < 9 APL U/mL (0-11); Anti-Cardiolipin Ab, IgG, Qn < 9 GPL U/mL (0-14); Anti-Cardiolipin Ab, IgM, Qn < 9 MPL U/mL (0-12); Beta-2-Glycoprotein I IgA <9 (0-25); Beta-2-Glycoprotein I IgG <9 (0-20); Beta-2-Glycoprotein I IgM <9 (0-32); Complement C3 115 mg/dL (82-167); Dilute Prothrombin Time (dPT) 41.3 sec (0.0-47.6); Interpretation Comment: (.); PTT-LA 38.9 sec (0.0-43.5); Thrombin Time 15.4 sec (0.0-23.0); dPT Confirm Ratio 1.01 Ratio (0.00-1.34)
[2022-08-03 14:09] LABS: Anti-dsDNA Ab 9 IU/mL (0-9)
== END | disposition home or self-care (01) ==
PROVIDERS: PCP Internal Medicine; Referring Provider Advanced Practice Midwife; Visit Provider Advanced Practice Midwife
DX: O09.90 Supervision of high risk pregnancy, unspecified, unspecified trimester (principal); M32.9 Systemic lupus erythematosus, unspecified; Z34.81 Encounter for supervision of other normal pregnancy, first trimester; Z31.430 Encounter of female for testing for genetic disease carrier status for procreative management; N96 Recurrent pregnancy loss
CPT/HCPCS: 36415; 80053; 82570; 84156; 85025; 86146; 86147; 86160; 86225; 86703; 86762; 86780; 86803; 86850; 86900; 86901; 87340

== ENCOUNTER → 2022-09-27 | Outpatient (CLI) | payer OTHER, SELFPAY ==
[2022-09-27 17:49] LABS: Absolute Lymphocyte Count 1.44 X10^3/uL (0.83-4.51); Absolute Neutrophil Count 5.6 X10^3/uL (2.0-7.7); Basophil# 0.02 X10^3/uL; Basophil% 0.3 % (0-1); Eosinophil# 0.06 X10^3/uL; Eosinophils% 0.8 % (0-5); Hematocrit 35.5 % (37-47); Hemoglobin 11.5 g/dL (12.0-15.0); Lymphocyte # 1.44 X10^3/ul (0.83-4.51); Lymphocyte % 18.5 % (19-41); Mean Corp Hgb Conc 32.4 g/dL (32-36); Mean Corpuscular Hgb 28.5 pg (27.0-32.0); Mean Corpuscular Volume 88.1 fL (81-99); Mean Platelet Vol. 10.8 fl (6.2-12.0); Monocyte# 0.62 X10^3/uL; NRBC Flagged by Analyzer 0 % (0-5); Neutrophil # 5.62 X10^3/uL (2.7-7.7); Neutrophil % 72.1 % (47-70); Platelet Count 273 K/mm3 (150-450); RBC Distribution Width CV 14.6 % (11.6-14.6); RBC Distribution Width SD 47.1 fl (35.1-43.9); Red Blood Count 4.03 M/mm3 (4.2-5.4); White Blood Count 7.8 K/mm3 (4.4-11.0)
[2022-09-27 17:52] LABS: Color, Urine Yellow (Yellow); Glucose, Dipstick Normal (Normal); Ketone-Dipstick Negative (Negative); Leukocyte Esterase-Dipstick 25 /ul (Negative); Nitrite-Dipstick Negative (Negative); Occult Blood-Urine Negative /ul (Negative); Protein-Dipstick 15 mg/dl (Negative); Specific Gravity, Urine 1.025 (1.002-1.030); Urine Bilirubin Dipstick Negative (Negative); Urine Clarity Clear (Clear); Urine Urobilinogen Normal (Normal)
[2022-09-27 18:03] LABS: ALB/GLOB Ratio 0.7 RATIO (0.9-2.4); AST(SGOT) 15 U/L (15-37); Alanine Aminotransfer ALT/SGPT 16 U/L (13-56); Albumin, Serum 3.2 g/dL (3.2-5.0); Alkaline Phosphatase 64 U/L (45-117); Anion Gap 6 (5-15); BUN 8 mg/dL (7-18); BUN/Creat Ratio 12.4 RATIO (10-20); CRP 2.93 mg/L (0.0-3.0); Calcium,Total 8.8 mg/dL (8.5-10.1); Chloride 104 mmol/L (98-107); Creatinine, Serum 0.65 mg/dL (0.55-1.02); EST Glomerular Filtration Rate 112 mL/min (>60); Est Glom Filt Rate - Afr Amer 136 mL/min (>60); Globulin 4.6 g/dL (2.2-4.2); Glucose 76 mg/dL (74-106); Potassium 3.5 mmol/L (3.5-5.1); Protein, Total 7.8 g/dL (6.4-8.2); Sodium Level 134 mmol/L (136-145)
[2022-09-27 18:18] LABS: Protein, Urine (Random) 29.9 mg/dL (<11.9); Protein:Creat Ratio 232 mg/g CRE (0-200)
[2022-09-27 18:22] LABS: Erythrocyte Sedimentation Rate 17 mm/hr (0-30)
[2022-09-29 03:15] LABS: Complement C3 128 mg/dL (82-167)
[2022-09-29 13:13] LABS: Anti-dsDNA Ab 11 IU/mL (0-9)
== END | disposition home or self-care (01) ==
PROVIDERS: PCP Internal Medicine; Referring Provider Internal Medicine Rheumatology; Visit Provider Internal Medicine Rheumatology
DX: M32.9 Systemic lupus erythematosus, unspecified (principal); Z79.899 Other long term (current) drug therapy
CPT/HCPCS: 36415; 80053; 81002; 82570; 84156; 85025; 85652; 86140; 86160; 86225

== ENCOUNTER → 2022-11-29 | Outpatient (CLI) | payer OTHER, SELFPAY ==
[2022-11-29 15:29] LABS: Absolute Lymphocyte Count 1.22 X10^3/uL (0.83-4.51); Absolute Neutrophil Count 5.1 X10^3/uL (2.0-7.7); Basophil# 0.02 X10^3/uL; Basophil% 0.3 % (0-1); Eosinophil# 0.03 X10^3/uL; Eosinophils% 0.4 % (0-5); Hematocrit 33.7 % (37-47); Hemoglobin 10.9 g/dL (12.0-15.0); Lymphocyte # 1.22 X10^3/ul (0.83-4.51); Lymphocyte % 17.5 % (19-41); Mean Corp Hgb Conc 32.3 g/dL (32-36); Mean Corpuscular Hgb 29.1 pg (27.0-32.0); Mean Corpuscular Volume 90.1 fL (81-99); Mean Platelet Vol. 9.9 fl (6.2-12.0); Monocyte# 0.53 X10^3/uL; Monocyte% 7.6 % (0-10); NRBC Flagged by Analyzer 0 % (0-5); Neutrophil # 5.14 X10^3/uL (2.7-7.7); Neutrophil % 73.5 % (47-70); Platelet Count 237 K/mm3 (150-450); RBC Distribution Width SD 42.7 fl (35.1-43.9); Red Blood Count 3.74 M/mm3 (4.2-5.4)
[2022-11-29 15:43] LABS: Glucose Challenge Gest 1H 50g 114 mg/dL (70-140)
[2022-11-29 19:06] LABS: HIV - WCH Non-Reactive (Nonreactive); Syphilis Antibodies Non-reactive
== END | disposition home or self-care (01) ==
LOC: PAVLAB 15:05
PROVIDERS: Obstetrics & Gynecology; PCP Internal Medicine; Referring Provider Obstetrics & Gynecology; Visit Provider Obstetrics & Gynecology
DX: Z34.92 Encounter for supervision of normal pregnancy, unspecified, second trimester (principal)
CPT/HCPCS: 36415; 82950; 85025; 86703; 86780

== ENCOUNTER → 2022-12-07 | Outpatient (CLI) | payer OTHER, SELFPAY ==
[2022-12-07 15:49] LABS: Absolute Lymphocyte Count 1.47 X10^3/uL (0.83-4.51); Absolute Neutrophil Count 4.9 X10^3/uL (2.0-7.7); Basophil# 0.02 X10^3/uL; Basophil% 0.3 % (0-1); Eosinophil# 0.04 X10^3/uL; Eosinophils% 0.6 % (0-5); Hematocrit 31.5 % (37-47); Hemoglobin 10.7 g/dL (12.0-15.0); Lymphocyte # 1.47 X10^3/ul (0.83-4.51); Lymphocyte % 20.5 % (19-41); Mean Corpuscular Hgb 30.4 pg (27.0-32.0); Mean Corpuscular Volume 89.5 fL (81-99); Mean Platelet Vol. 10.3 fl (6.2-12.0); Monocyte# 0.69 X10^3/uL; Monocyte% 9.6 % (0-10); NRBC Flagged by Analyzer 0 % (0-5); Neutrophil # 4.91 X10^3/uL (2.7-7.7); Neutrophil % 68.3 % (47-70); Platelet Count 249 K/mm3 (150-450); RBC Distribution Width SD 42.5 fl (35.1-43.9); Red Blood Count 3.52 M/mm3 (4.2-5.4); White Blood Count 7.2 K/mm3 (4.4-11.0)
[2022-12-07 15:50] LABS: Erythrocyte Sedimentation Rate 26 mm/hr (0-30)
[2022-12-07 16:13] LABS: ALB/GLOB Ratio 0.7 RATIO (0.9-2.4); AST(SGOT) 17 U/L (15-37); Alanine Aminotransfer ALT/SGPT 16 U/L (13-56); Albumin, Serum 2.7 g/dL (3.2-5.0); Alkaline Phosphatase 79 U/L (45-117); Anion Gap 6 (5-15); BUN 8 mg/dL (7-18); BUN/Creat Ratio 12.7 RATIO (10-20); CRP < 2.90 mg/L (0.0-3.0); Calcium,Total 8.3 mg/dL (8.5-10.1); Chloride 106 mmol/L (98-107); Creatinine, Serum 0.63 mg/dL (0.55-1.02); EST Glomerular Filtration Rate 115 mL/min (>60); Est Glom Filt Rate - Afr Amer 139 mL/min (>60); Globulin 4.1 g/dL (2.2-4.2); Glucose 83 mg/dL (74-106); Potassium 3.5 mmol/L (3.5-5.1); Protein, Total 6.8 g/dL (6.4-8.2); Sodium Level 134 mmol/L (136-145)
[2022-12-07 18:10] LABS: Color, Urine Yellow (Yellow); Glucose, Dipstick Normal (Normal); Ketone-Dipstick Negative (Negative); Leukocyte Esterase-Dipstick 25 /ul (Negative); Nitrite-Dipstick Negative (Negative); Occult Blood-Urine Negative /ul (Negative); Protein-Dipstick 15 mg/dl (Negative); Urine Bilirubin Dipstick Negative (Negative); Urine Clarity Clear (Clear); Urine Urobilinogen Normal (Normal); Urine pH 6.5 (5.0 - 8.0)
[2022-12-07 18:53] LABS: Protein, Urine (Random) 47.8 mg/dL (<11.9); Protein:Creat Ratio 266 mg/g CRE (0-200)
[2022-12-09 05:07] LABS: Complement C3 138 mg/dL (82-167)
[2022-12-09 13:07] LABS: Anti-dsDNA Ab 10 IU/mL (0-9)
== END | disposition home or self-care (01) ==
LOC: MTLAB 13:46
PROVIDERS: PCP Internal Medicine; Referring Provider Internal Medicine Rheumatology; Visit Provider Internal Medicine Rheumatology
DX: M32.9 Systemic lupus erythematosus, unspecified (principal); R59.0 Localized enlarged lymph nodes; D89.0 Polyclonal hypergammaglobulinemia; R50.9 Fever, unspecified; Z79.899 Other long term (current) drug therapy
CPT/HCPCS: 36415; 80053; 81002; 82570; 84156; 85025; 85652; 86140; 86160; 86225

== ENCOUNTER 2023-01-10 14:35 | Outpatient (CLI) | payer OTHER, SELFPAY ==
[2023-01-10 14:40] VITALS: PULSE 66; O2SAT 100
[2023-01-10 14:41] VITALS: BP 108/68; TEMP 36.8; BMI 21.3
--- NOTE | 2023-01-10 15:22 | OB.TRI.HP_ITS ---
HPI - General General Date of Admission: 01/10/23 HPI Narrative SRINIVASA PICKETT, is a 32 y/o G1 at 33 weeks 6 days who presents for NST. She was in the office with a non-reactive NST for over 1 hour. no decelerations were noted in the office and the variability was moderate. Maternal Data Information ROMAINE Calculator Estimated Delivery Date Method Current WG Current Estimate 02/23/23 LMP (Certain) 33w 6d Other Estimates 02/25/23 Ultrasound #1 33w 4d PFSH PFS Medical History Anticardiolipin antibody positive Heterozygous factor V Leiden mutation History of anemia as a child History of migraine headaches Kikuchi disease Polyclonal gammopathy Rash SLE (systemic lupus erythematosus) Vision problems Home Medications famotidine 20 mg tablet (Pepcid) 20 mg PO DAILY 11/26/21 [History Last Taken 1 03/11/22 21:00] calcium carbonate 200 mg calcium (500 mg) chewable tablet (Antacid (calcium carbonate)) 200 mg PO DAILY 12/01/21 [History Last Taken 01/09/23 21:00] hydroxychloroquine 200 mg tablet (Plaquenil) 200 mg PO DAILY 02/15/22 [History Last Taken 01/10/23 09:00] aspirin 81 mg chewable tablet (Aspirin Childrens) 1 tab PO DAILY 01/10/23 [History Last Taken 01/10/23 09:00] ferrous sulfate 325 mg (65 mg iron) tablet (Feosol) 325 mg PO DAILY 01/10/23 [History Last Taken 01/10/23 09:00] vitamins-iron fumarate 65 mg iron-folic acid 1 mg tablet (Mynatal Plus) tab 01/10/23 [History Last Taken 01/10/23 09:00] Allergy/AdvReac Type Severity Reaction Status Date / Time No Known Allergies Allergy Verified 01/10/23 14:43 Family History Grandmother Arthritis Heart disease Myocardial infarction Grandfather Arthritis Diabetes Mother Thyroid disorder Brother Asthma Surgical History H/O foot surgery History of biopsy Social History household members: spouse housing: house current occupational status: employed current occupation: [employer] current occupational exposures/hazards: Yes (works in health care) pets and animals: Yes pets and animals: dog(s) history of recent travel: Yes out of state: Yes sexually active: Yes Smoking Status: Never smoker Electronic Cigarette Use: not used alcohol intake: current alcohol intake frequency: holidays/special occasions only substance use type: does not use caffeine: Yes Type: coffee Number of servings: 1 what type of physical activity do you participate in: walking and weight training frequency: 3-4 times per week seatbelt use: always do you feel safe at home: Yes additional social history: Lamont Frankel History 1 Elective abortions Hx Para Spontaneous abortions Hx # Term Pregnancies Ectopic pregnancies Hx # Pregnancies Multiple births # of living children Visit Details Expected Delivery Route/Plan Labor Preferences- CB/BF classes: [] labor support person: [] labor intervention preferences: [] pain management options preferred: [] cut cord/dad catch: [] : [] PP control planned: [] discussed possible routes of delivery and associated risks: [] special requests: [] Plans Covid status: [] Flu vaccine: [] Tdap vaccine: [] Rhogam: [] LARC form signed: [] Problem list reviewed and updated with the most current plan of care details and appropriate orders placed. Relevant counseling for the gestational age provided. Continue routine care and follow up unless otherwise noted in visit notes/problem list details OB Flowsheet Initial Weight: Not Recorded Date -?-?-?-?-?-?-?-?-?-?-?-?- EGA Weight BP Urine Prot -?-?-?-?-?-?-?-?-?-?-?-?- Glucose FHR FuHt Pres Dilation -?-?-?-?-?-?-?-?-?-?-?-?- Effaced St Visit Note 07/16/22 -?-?-?-?-?-?-?-?-?-?-?-?- 8w 2d 116 lb 103/63 -?-?-?-?-?-?-?-?-?-?-?-?- 185 -?-?-?-?-?-?-?-?-?-?-?-?- KW- CRL 15.4mm-c onsistent with LMP. JV scanned. Consulted JV concerning health concerns KW- CRL 15.4mm-consistent wi th LMP. JV scanned. Consulted JV concerning health concerns. 08/13/22 -?-?-?-?-?-?-?-?-?-?-?-?- 12w 2d 116 lb 2 oz Negative -?-?-?-?-?-?-?-?-?-?-?-?- Negative 133 -?-?-?-?-?-?-?-?-?-?-?-?- JV- JV- reviewed Kikuchi disease and incidental finding of anticardiolipin Ab and heterozygous for factor V, she will take daily baby asa. never had a clot. no fhx of clot 09/09/22 -?-?-?-?-?-?-?-?-?-?-?-?- 16w 1d 117 lb 102/64 Negative -?-?-?-?-?-?--?-?-?-?-?-?- Negative 145 -?-?-?-?-?-?-?-?-?-?-?-?- KW-no vb/drew duarte. on 09/30. AFP discussed. 10/08/22 -?-?-?-?-?-?-?-?-?-?-?-?- 20w 2d 119 lb 98/62 Negative -?-?-?-?-?-?-?-?-?-?-?-?- Negative 140 -?-?-?-?-?-?-?-?-?-?-?-?- JV- no complaint s today. normal growth on us. plan weekly tests starting 32 weeks. 11/04/22 -?-?-?-?-?-?-?-?-?-?-?-?- 24w 1d 121 lb 4 oz 100/66 Nega tive -?-?-?-?-?-?-?-?-?-?-?-?- Negative 145 24 -?-?-?-?-?-?-?-?-?-?-?-?- JV- no lof, vagi nal bleeding, or dec fm. no complaints. glucola ordered. 11/29/22 -?-?-?-?-?-?-?-?-?-?-?-?- 27w 5d 124 lb 102/66 Negative -?-?-?-?-?-?-?-?-?-?-?-?- Negative 148 27 -?-?-?-?-?-?-?-?-?-?-?-?- JV- no lof, vagi nal bleeding, or dec fm. flu vaccine today. normal 28 week labs. 12/16/22 -?-?-?-?-?-?-?-?-?-?-?-?- 30w 1d 124 lb 8 oz 98/67 Nega tive -?-?-?-?-?-?-?-?-?-?-?-?- Negative 144 29 -?-?-?-?--?-?-?-?-?-?-?-?- kw-no vb/lof/ctx . good fm. kw-no vb/lof/ctx. good fm. d iscussed NSTs next visit. LARC done today 12/27/22 -?-?-?-?-?-?-?-?-?-?-?-?- 31w 5d 128 lb 6 oz 98/63 Nega tive -?-?-?-?-?-?-?-?-?-?-?-?- Negative 140 -?-?-?-?-?-?-?-?-?-?-?-?- JV- latest ultra sound was 12/23/22 showing less than 1st% of AC, NST is reactive. pt will see MFM every and us 01/03/23 -?-?-?-?-?-?-?-?-?-?-?-?- 32w 5d 128 lb 4 oz 102/67 Nega tive -?-?-?-?-?-?-?-?-?-?-?-?- Negative 140 31 -?-?-?-?-?-?-?-?-?-?-?-?- JV- no lof, vagi nal bleeding ,or dec fm. NST reactive. has next us on . 01/10/23 -?-?-?-?-?-?-?-?-?-?-?-?- 33w 5d 129 lb 8 oz 103/69 Nega tive -?-?-?-?-?-?-?-?-?-?-?-?- Negative 130 -?-?-?-?-?-?-?-?-?-?-?-?- JV- nst not reac tive today. sending to L&D for prolonged monitoring and bpp ROS Constitutional Constitutional: Reports systems reviewed and no addt'l complaints, except as documented Gastrointestinal Gastrointestinal: Denies bloating, constipation, cramping, diarrhea, nausea or vomiting Genitourinary Genitourinary: Reports other Details: Denies vaginal odor, vaginal bleeding, or vaginal discharge ; Denies difficulty urinating or flank pain Physical Exam Resp normal respiratory effort and normal air movement no CVA tenderness Extremity normal to inspection General Extremity: edema bilateral (trace ) NST FHR Rate Baby A Baseline: 130 Variability:: Moderate Accelerations:: 15 x 15 Decelerations:: None NST Reactive:: Yes FHR Category:: Category I Uterine Activity:: no contractions, there is some irritability present Assessment & Plan (1) IUGR (intrauterine growth restriction) affecting care of mother: (2) Kikuchi disease: COMMENT: a rare, 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 (3) Supervision of high risk , antepartum: COMMENT: ROMAINE 02/23/23 Jostin fry leisa (4) : QUALIFIERS: Weeks of gestation: 33 weeks Qualified Code(s): Z3A.33 - 33 weeks gestation of COMMENT: anatomy nl, NIPT low risk, wants carrier (5) SLE (systemic lupus erythematosus): COMMENT: growth US q2 weeks, 35% at 23 weeks, 41% at 27 weeks. 29% and AC 1% at 31 wk, 2x weekly visits. NST on Mondays with office and BPP with MFM on . NSTs starting at 32 weeks, deliver @ 38-39 wks (6) Anticardiolipin antibody positive: (7) Heterozygous factor V Leiden mutation: COMMENT: No Hx VTE- Per ACOG bulletin-no anticoagulation regiment at this time. hematology recommends baby asa. (8) Cerebrovascular disease: (9) Memory loss: (10) Headache: (11) Vision loss: (12) Polyclonal gammopathy: (13) Cervical lymphadenopathy: PLAN: Plan NST now met criteria for reactive category 1. ok to dc to home . Charges/Coding Multi Select Codes Visit Charges Office Visit/Consults: 22817 OV L3 Est Urinary/Genital Urinary/Genital CPT Codes: 97569-70 non-stress test Interp
== END 2023-01-10 15:36 | disposition home or self-care (01) ==
LOC: WPOUT 14:39 → WP 14:40
PROVIDERS: Referring Provider Obstetrics & Gynecology; Visit Provider Obstetrics & Gynecology
DX: O36.5930 Maternal care for other known or suspected poor fetal growth, third trimester, not applicable or unspecified (principal); D68.62 Lupus anticoagulant syndrome; Z3A.33 33 weeks gestation of pregnancy; O99.113 Other diseases of the blood and blood-forming organs and certain disorders involving the immune mechanism complicating pregnancy, third trimester; O99.413 Diseases of the circulatory system complicating pregnancy, third trimester; I67.9 Cerebrovascular disease, unspecified; R41.3 Other amnesia; O99.891 Other specified diseases and conditions complicating pregnancy; R51.9 Headache, unspecified; H54.7 Unspecified visual loss; D89.0 Polyclonal hypergammaglobulinemia; R59.9 Enlarged lymph nodes, unspecified
CPT/HCPCS: 59025; 99221; G0378

== ENCOUNTER → 2023-01-31 | Outpatient (CLI) | payer OTHER, SELFPAY | END | disposition home or self-care (01) | LOC: LABSPEC 16:38 | PROVIDERS: Referring Provider Obstetrics & Gynecology; Visit Provider Obstetrics & Gynecology | DX: O09.90 Supervision of high risk pregnancy, unspecified, unspecified trimester (principal); Z3A.00 Weeks of gestation of pregnancy not specified | CPT/HCPCS: 87081 ==

== ENCOUNTER 2023-02-10 16:55 | Inpatient (IN) | payer OTHER, SELFPAY ==
[2023-02-10 17:36] VITALS: BP 96/51; PULSE 73; PULSE 76; O2SAT 100
[2023-02-10 17:40] VITALS: BMI 21.1
[2023-02-10 17:50] VITALS: BP 96/51; PULSE 78; TEMP 37.1; O2SAT 99
[2023-02-10 17:58] LABS: Absolute Lymphocyte Count 1.53 X10^3/uL (0.83-4.51); Basophil# 0.03 X10^3/uL; Basophil% 0.4 % (0-1); Eosinophil# 0.06 X10^3/uL; Eosinophils% 0.8 % (0-5); Hematocrit 32.6 % (37-47); Hemoglobin 10.8 g/dL (12.0-15.0); Lymphocyte # 1.53 X10^3/ul (0.83-4.51); Lymphocyte % 20.8 % (19-41); Mean Corp Hgb Conc 33.1 g/dL (32-36); Mean Corpuscular Hgb 28.9 pg (27.0-32.0); Mean Corpuscular Volume 87.2 fL (81-99); Mean Platelet Vol. 10.4 fl (6.2-12.0); Monocyte# 0.67 X10^3/uL; Monocyte% 9.1 % (0-10); NRBC Flagged by Analyzer 0 % (0-5); Neutrophil % 67.9 % (47-70); Platelet Count 238 K/mm3 (150-450); RBC Distribution Width CV 13.5 % (11.6-14.6); RBC Distribution Width SD 42.2 fl (35.1-43.9); Red Blood Count 3.74 M/mm3 (4.2-5.4); White Blood Count 7.4 K/mm3 (4.4-11.0)
[2023-02-10 18:39] LABS: Syphilis Antibodies Non-reactive
[2023-02-10] MEDS: miSOPROStol 25 MCG TABLET VAGINAL ×2 (19:00→23:34)
[2023-02-10 19:26] VITALS: BP 93/50; PULSE 67; TEMP 36.9
[2023-02-10 23:40] VITALS: BP 98/57; PULSE 64; TEMP 36.4
[2023-02-11] VITALS (111 sets, daily range): BP systolic 85–129; BP diastolic 47–72; PULSE 56–136; RESP 14–16; TEMP 36.2–37.4; O2SAT 87–100
[2023-02-11] MEDS: miSOPROStol 25 MCG TABLET VAGINAL (03:26)
[2023-02-11] MEDS: 0.9% Normal Saline Single 100 ML IV.SOLN. INTRA-UTER (07:50)
[2023-02-11] MEDS: LACTATED RINGERS 500 ML 999 ML IV ×3 (08:09→14:50)
[2023-02-11] MEDS: Lactated Ringers 1,000 ML 50 ML IV (08:09)
[2023-02-11] MEDS: 0.9% Saline Lock 10 ML Syringe IV (08:09)
[2023-02-11] MEDS: Ondansetron 4 MG/2 ML Vial IV ×2 (08:41→19:09)
--- NOTE | 2023-02-11 10:29 | HP.PCM.OB_ITS ---
HPI - General General Date of Admission: 02/10/23 HPI Narrative SRINIVASA PICKETT, is a 32 F who presents for IOL secondary to IUGR, echogenic bowel seen on US today and M recommended delivery for suspected meconium. Maternal Data Information ROMAINE Calculator Estimated Delivery Date Method Current WG Current Estimate 02/23/23 LMP (Certain) 38w 2d Other Estimates 02/25/23 Ultrasound #1 38w 0d PFSH PFSH Medical History Anticardiolipin antibody positive Heterozygous factor V Leiden mutation History of anemia as a child History of migraine headaches Kikuchi disease Polyclonal gammopathy Rash SLE (systemic lupus erythematosus) Vision problems Home Medications calcium carbonate 200 mg calcium (500 mg) chewable tablet (Antacid (calcium carbonate)) 200 mg PO DAILY heartburn 12/01/21 [History Last Taken 02/09/23 22:00] hydroxychloroquine 200 mg tablet (Plaquenil) 200 mg PO DAILY lupus 02/15/22 [History Last Taken 02/10/23 08:00] aspirin 81 mg chewable tablet (Aspirin Childrens) 1 tab PO DAILY factor 5 01/10/23 [History Last Taken 02/10/23 08:00] ferrous sulfate 325 mg (65 mg iron) tablet (Feosol) 325 mg PO DAILY anemia 01/10/23 [History Last Taken 02/10/23 08:00] vitamins-iron fumarate 65 mg iron-folic acid 1 mg tablet (Mynatal Plus) 1 tab PO DAILY 01/10/23 [History Last Taken 02/10/23 08:00] Allergy/AdvReac Type Severity Reaction Status Date / Time No Known Allergies Allergy Verified 02/10/23 17:50 Family History Grandmother Arthritis Heart disease Myocardial infarction Grandfather Arthritis Diabetes Mother Thyroid disorder Brother Asthma Surgical History H/O foot surgery History of biopsy Social History household members: spouse housing: house current occupational status: employed current occupation: [employer] current occupational exposures/hazards: Yes (works in health care) pets and animals: Yes pets and animals: dog(s) history of recent travel: Yes out of state: Yes sexually active: Yes Smoking Status: Never smoker Electronic Cigarette Use: not used alcohol intake: current alcohol intake frequency: holidays/special occasions only substance use type: does not use caffeine: Yes Type: coffee Number of servings: 1 what type of physical activity do you participate in: walking and weight training frequency: 3-4 times per week seatbelt use: always do you feel safe at home: Yes additional social history: Lamont Frankel History 1 Elective abortions Hx Para 0 Spontaneous abortions Hx # Term Pregnancies Ectopic pregnancies Hx # Pregnancies Multiple births # of living children Visit Details Expected Delivery Route/Plan Labor Preferences- CB/BF classes: done labor support person: karthikeyan frankel and Renetta labor intervention preferences: open to anything pain management options preferred:open to epidural cut cord/dad catch: yes cord only : yes PP control planned: [] discussed possible routes of delivery and associated risks: [] special requests: [] Plans Covid status: declined Flu vaccine: given Tdap vaccine: given Rhogam: na LARC form signed: declined movement and labor precautions reviewed. Problem list reviewed and updated with the most current plan of care details and appropriate orders placed. Relevant counseling for the gestational age provided. Continue routine care and follow up unless otherwise noted in visit notes/problem list details OB Flowsheet Initial Weight: Not Recorded Date -?-?-?-?-?-?-?-?-?-?-?-?- EGA Weight BP Urine Prot -?-?-?-?-?-?-?-?-?-?-?-?- Glucose FHR FuHt Pres Dilation -?-?-?-?-?-?-?-?-?-?-?-?- Effaced St Visit Note 07/16/22 -?-?-?-?-?-?-?-?-?-?-?-?- 8w 2d 116 lb 103/63 -?-?-?-?-?-?-?-?-?-?-?-?- 185 -?-?-?-?-?-?-?-?-?-?-?-?- KW- CRL 15.4mm-c onsistent with LMP. JV scanned. Consulted JV concerning health concerns KW- CRL 15.4mm-consistent wi th LMP. JV scanned. Consulted JV concerning health concerns. 08/13/22 -?-?-?-?-?-?-?-?-?-?-?-?- 12w 2d 116 lb 2 oz Negative -?-?-?-?-?-?-?-?-?-?-?-?- Negative 133 -?-?-?-?-?-?-?-?-?-?-?-?- JV- JV- reviewed Kikuchi disease and incidental finding of anticardiolipin Ab and heterozygous for factor V, she will take daily baby asa. never had a clot. no fhx of clot 09/09/22 -?-?-?-?-?-?-?-?-?-?-?-?- 16w 1d 117 lb 102/64 Negative -?-?-?-?-?-?-?-?-?-?-?-?- Negative 145 -?-?-?-?-?-?-?-?-?-?-?-?- KW-no vb/crampin g. US on 09/30. AFP discussed. 10/08/22 -?-?-?-?-?-?-?-?-?-?-?-?- 20w 2d 119 lb 98/62 Negative -?-?-?-?-?-?-?-?-?-?-?-?- Negative 140 -?-?-?-?-?-?-?-?-?-?-?-?- JV- no complaint s today. normal growth on us. plan weekly tests starting 32 weeks. 11/04/22 -?-?-?-?-?-?-?-?-?-?-?-?- 24w 1d 121 lb 4 oz 100/66 Nega tive -?-?-?-?-?-?-?--?-?-?-?-?- Negative 145 24 -?-?-?-?-?-?-?-?-?-?-?-?- JV- no lof, vagi nal bleeding, or dec fm. no complaints. glucola ordered. 11/29/22 -?-?--?-?-?-?-?-?-?-?-?-?- 27w 5d 124 lb 102/66 Negative -?-?-?-?-?-?-?-?-?-?-?-?- Negative 148 27 -?-?-?-?-?-?-?-?-?-?-?-?- JV- no lof, vagi nal bleeding, or dec fm. flu vaccine today. normal 28 week labs. 12/16/22 -?-?-?-?-?-?-?-?-?-?-?-?- 30w 1d 124 lb 8 oz 98/67 Nega tive -?-?-?-?-?-?-?-?-?-?-?-?- Negative 144 29 -?-?-?-?-?-?-?-?-?-?-?-?- kw-no vb/lof/ctx . good fm. kw-no vb/lof/ctx. good fm. d iscussed NSTs next visit. LARC done today 12/27/22 -?-?-?-?-?-?-?-?-?-?-?-?- 31w 5d 128 lb 6 oz 98/63 Nega tive -?-?-?-?-?-?-?-?-?-?-?-?- Negative 140 -?-?-?-?-?-?-?-?-?-?-?-?- JV- latest ultra sound was 12/23/22 showing less than 1st% of AC, NST is reactive. pt will see MFM every and us 01/03/23 -?-?-?-?-?-?-?-?-?-?-?-?- 32w 5d 128 lb 4 oz 102/67 Nega tive -?-?-?-?-?-?-?-?-?-?-?-?- Negative 140 31 -?-?-?-?-?-?-?-?-?-?-?-?- JV- no lof, vagi nal bleeding ,or dec fm. NST reactive. has next us on . 01/10/23 -?-?-?-?-?-?-?-?-?-?-?-?- 33w 5d 129 lb 8 oz 103/69 Nega tive -?-?-?-?-?-?-?-?-?-?-?-?- Negative 130 -?-?-?-?-?-?-?-?-?-?-?-?- JV- nst not reac tive today. sending to L&D for prolonged monitoring and bpp 01/17/23 -?-?-?-?-?-?-?-?-?-?-?-?- 34w 5d 129 lb 6 oz 109/73 Nega tive -?-?-?--?-?-?-?-?-?-?-?-?- Negative 130 -?-?-?-?-?-?-?-?-?-?-?-?- SM- no vb lof go od fm no regular ctx discussed l and d preferences 01/24/23 -?-?-?-?-?-?-?-?-?--?-?-?- 35w 5d 130 lb 4 oz 102/68 Nega tive -?-?-?-?-?-?-?-?-?-?-?-?- Negative 140 -?-?-?-?-?-?-?-?-?-?-?-?- JV- nst reactive . last growth showed 5th% AC. has next us on Tuesday. plan for 39 week IOL. has a plan to use the tub, but understands can not be in tub if being induced and not a great candidate due to IUGR and needing to do continuous monitoring in labor. not a good candidate for intermittent monitoring. pt states that she understands. Has some complaints about the office. JV- nst reactive. last growt h showed 5th% AC. has next us on Tuesday. plan for 39 week IOL. has a plan to use the tub, but understands can not be in tub if being induced and not a great candidate due to IUGR and needing to do continuo us monitoring in labor. not a good candidate for intermittent monitoring. pt states that she understands. Has some complaints about the office staff that we discussed today 01/31/23 -?-?-?-?-?-?-?-?-?-?-?-?- 36w 5d 129 lb 6 oz 99/66 Nega tive -?-?-?-?-?-?-?-?-?-?-?-?- Negative 145 32 Cephalic 0 -?-?-?-?-?-?-?-?-?-?-?-?- -3 JV- nst reactive. gbs collected. next us is . 02/07/23 -?-?-?-?-?-?-?-?-?-?-?-?- 37w 5d 131 lb 4 oz 98/60 Nega tive -?-?-?-?-?-?-?-?-?-?-?-?- Negative 145 36 Cephalic 0 .5 -?-?-?-?-?-?-?-?-?-?-?-?- 30 -3 JV- nst re active. IOL set up for tuesday night (cytotec) NST FHR Rate Baby A Baseline: 140 Variability:: Moderate Accelerations:: 15 x 15 Decelerations:: None NST Reactive:: Yes FHR Category:: Category I Uterine Activity:: irregular ROS Constitutional Constitutional: Reports systems reviewed and no addt'l complaints, except as documented Eyes Eyes: Denies change in vision ENT HEENT: Reports systems reviewed and no addt'l complaints, except as documented; Denies headache(s) Cardiovascular Cardiovascular: Reports systems reviewed and no addt'l complaints, except as documented; Denies chest pain or dyspnea Respiratory/Chest Respiratory/Chest: Reports systems reviewed and no addt'l complaints, except as documented Gastrointestinal Gastrointestinal: Reports systems reviewed and no addt'l complaints, except as documented; Denies abdominal pain Genitourinary Genitourinary: Reports systems reviewed and no addt'l complaints, except as documented, contractions Details: present (irregular) and movement Details: present; Denies dysuria or genital lesions Musculoskeletal Musculoskeletal: Reports systems reviewed and no addt'l complaints, except as documented Neurologic Neurologic: Reports systems reviewed and no addt'l complaints, except as documented Endocrine Endocrinology: Reports systems reviewed and no addt'l complaints, except as documented Vital Signs Vital Signs Vital Signs: 02/10/23 17:36 02/10/23 17:36 02/10/23 17:36 Temperature Temperature Source Pulse Rate 76 73 Blood Pressure 96/51 L BP Systolic 96 BP Diastolic 51 Pulse Ox 02/10/23 17:36 02/10/23 17:50 02/10/23 17:50 Temperature Temperature Source Temporal Pulse Rate Blood Pressure 96/51 L BP Systolic 96 BP Diastolic 51 Pulse Ox 100 02/10/23 17:50 02/10/23 17:50 02/10/23 17:50 Temperature 98.8 F Temperature Source Pulse Rate 78 Blood Pressure BP Systolic BP Diastolic Pulse Ox 99 02/10/23 19:26 02/10/23 19:26 02/10/23 19:26 Temperature Temperature Source Temporal Pulse Rate 67 Blood Pressure 93/50 L BP Systolic 93 BP Diastolic 50 Pulse Ox 02/10/23 19:26 02/10/23 23:40 02/10/23 23:40 Temperature 98.4 F Temperature Source Pulse Rate 64 Blood Pressure 98/57 L BP Systolic 98 BP Diastolic 57 Pulse Ox 02/10/23 23:40 02/10/23 23:40 02/11/23 03:33 Temperature 97.5 F L Temperature Source Temporal Temporal Pulse Rate Blood Pressure BP Systolic BP Diastolic Pulse Ox 02/11/23 03:33 02/11/23 03:33 02/11/23 03:33 Temperature 97.6 F L Temperature Source Pulse Rate 60 Blood Pressure 99/58 L BP Systolic 99 BP Diastolic 58 Pulse Ox 02/11/23 07:26 02/11/23 07:26 02/11/23 07:28 Temperature Temperature Source Pulse Rate 63 61 Blood Pressure 108/55 L BP Systolic 108 BP Diastolic 55 Pulse Ox 02/11/23 07:28 02/11/23 07:26 02/11/23 07:26 Temperature Temperature Source Temporal Pulse Rate Blood Pressure BP Systolic BP Diastolic Pulse Ox 87 100 02/11/23 07:26 02/11/23 08:23 02/11/23 08:23 Temperature 98.6 F Temperature Source Pulse Rate 63 Blood Pressure 88/54 L BP Systolic 88 BP Diastolic 54 Pulse Ox 02/11/23 08:23 02/11/23 08:23 02/11/23 08:23 Temperature 98.8 F Temperature Source Temporal Pulse Rate Blood Pressure BP Systolic BP Diastolic Pulse Ox 100 02/11/23 09:28 02/11/23 09:28 02/11/23 09:29 Temperature Temperature Source Temporal Pulse Rate 62 Blood Pressure 89/51 L BP Systolic 89 BP Diastolic 51 Pulse Ox 02/11/23 09:29 02/11/23 09:29 02/11/23 10:21 Temperature 98.2 F Temperature Source Pulse Rate Blood Pressure 103/62 BP Systolic 103 BP Diastolic 62 Pulse Ox 98 02/11/23 10:21 02/11/23 10:27 02/11/23 10:27 Temperature Temperature Source Pulse Rate 65 71 Blood Pressure 93/50 L BP Systolic 93 BP Diastolic 50 Pulse Ox Weight Weight: 130 lb 15.273 oz Body Mass Index (BMI) 21.1 Physical Exam Const alert, oriented x3, no apparent distress and healthy appearing HEENT normocephalic and moist oral mucous membranes Head and Scalp: atraumatic Neck full ROM, no lymphadenopathy, supple and thyroid normal General: trachea midline Lymph Lymphatic: no lymphadenopathy noted Chest inspection of chest normal Resp normal respiratory effort Cardio regular rate GI normal to inspection, nondistended, normoactive bowel sounds, soft to palpation and non-tender Inspection: gravid external exam normal Manual OB Exam: estimated gestational size appropriate, presentation cephalic, dilated 1, effaced and station Extremity normal to inspection General Extremity: Negative for edema Skin no rashes or lesions noted Neuro no focal motor deficits and deep tendon reflexes 2+ bilaterally Motor Exam: strength 5/5 throughout and clonus absent Psych mental status grossly normal Labs Labs Labs: Blood Type O POSITIVE Antibody Screen NEGATIVE Hct 32.6 % (37-47) L Hgb 10.8 g/dL (12.0-15.0) L Syphilis Total Ab Non-reactive Rubella IgG Antibody Reactive (Nonreactive) Hep Bs Antigen Non-Reactive (Nonreactive) Hepatitis C Antibody Non-Reactive (Nonreactive) Chlamydia DNA (JENNIFER) Negative (Negative) N.gonorrhoeae DNA (JENNIFER) Negative (Negative) HIV 1&2 Antibody Non-Reactive (Nonreactive) Glucose 1 Hr 50 gm 114 mg/dL (70-140) Miscellaneous Test Assessment & Plan (1) Encounter for induction of labor: (2) IUGR (intrauterine growth restriction) affecting care of mother: COMMENT: twice weekly assessment, once with MFM once with [facility]. delivery at 38-39 weeks 02/03- wt 2640g 17% and AC3% (3) Kikuchi disease: COMMENT: a rare, 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 (4) Supervision of high risk , antepartum: COMMENT: ROMAINE 02/23/23 Jostin lisandra glucola (5) : QUALIFIERS: Weeks of gestation: 37 weeks Qualified Code(s): Z3A.37 - 37 weeks gestation of COMMENT: GBS neg, anatomy nl, NIPT low risk, wants carrier (6) SLE (systemic lupus erythematosus): COMMENT: growth US q2 weeks, 35% at 23 weeks, 41% at 27 weeks. 29% and AC 1% at 31 wk. 20% and AC 5% at 33 wk. 2x weekly visits. NST on Mondays with office and BPP with MFM on . NSTs starting at 32 weeks, deliver @ 38-39 wks (7) Anticardiolipin antibody positive: (8) Heterozygous factor V Leiden mutation: COMMENT: No Hx VTE- Per ACOG bulletin-no anticoagulation regiment at this time. hematology recommends baby asa. PLAN: Plan Patient presents IOL, plan management for with cytotec then pitocin. Pain management: plans epidural. GBS negative. Management of any complications: IUGR proceed with IOL I have reviewed the [facility] and made any clinically relevant updates.
[2023-02-11] MEDS: fentaNYL-bupivacaine (epidural) 100 ML BAG EPIDURAL (10:44)
[2023-02-11] MEDS: Oxytocin 15 Units/NS 250ml 15 UNITS/250 ML IV.SOLN 2 UNITS IV (13:30)
[2023-02-11] MEDS: Lactated Ringers 1,000 ML 200 ML IV (14:50)
[2023-02-11] MEDS: Sodium Citrate/Citric Acid 30 ML UDC PO (16:17)
--- NOTE | 2023-02-11 16:22 | PN_ITS ---
Progress Note Late entry catch up note: membranes were ruptured at 1320 and blood tinged fluid returned. A hand presented but spontaneously moved behind the head with position change. Pitocin running. Nurse Sveat updated me while in office that she had to turn pitocin off, head was still palpable and the tracing started showing late decelerations. up on exam, hand was located posterior aspect of head and retracted. plan to re- evaluate in 1 hr at 1420 decision made to proceed with section due to intermittent becoming more persistent late decelerations. patient was counseled on the risks, benefits, and alternatives and signed consent for primary section. current tracing: FHT: min to Moderate variability, late decelerations often (>50% of contractions) [place]: about every 8-10 min Contractions cx: unchanged from AROM: 5.5/80/-1 A/P: plan for primary section now.
[2023-02-11] MEDS: Cefazolin 2 GM in 0.9% Normal Saline (100mL Bag) 100 ML IV (16:26)
[2023-02-11] MEDS: Azithromycin 500 MG in Dextrose 5%-Water (250mL Bag) 250 ML 250 MG IV (16:40)
[2023-02-11] MEDS: Methylergonovine 0.2 MG/ML Ampul IM (16:50)
[2023-02-11] MEDS: Carboprost Tromethamine 250 MCG/ML Ampul IM (16:56)
--- NOTE | 2023-02-11 17:11 | EX.PCM.OBRPT ---
Assessment & Plan (1) intolerance to labor, delivered, current hospitalization: (2) Encounter for induction of labor: (3) IUGR (intrauterine growth restriction) affecting care of mother: COMMENT: twice weekly assessment, once with MFM once with [facility]. delivery at 38-39 weeks 02/03- wt 2640g 17% and AC3% (4) Kikuchi disease: COMMENT: a rare, 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 (5) Supervision of high risk , antepartum: COMMENT: ROMAINE 02/23/23 Jostin de la fuente (6) : QUALIFIERS: Weeks of gestation: 37 weeks Qualified Code(s): Z3A.37 - 37 weeks gestation of COMMENT: GBS neg, anatomy nl, NIPT low risk, wants carrier (7) SLE (systemic lupus erythematosus): COMMENT: growth US q2 weeks, 35% at 23 weeks, 41% at 27 weeks. 29% and AC 1% at 31 wk. 20% and AC 5% at 33 wk. 2x weekly visits. NST on Mondays with office and BPP with MFM on . NSTs starting at 32 weeks, deliver @ 38-39 wks (8) Anticardiolipin antibody positive: (9) Heterozygous factor V Leiden mutation: COMMENT: No Hx VTE- Per ACOG bulletin-no anticoagulation regiment at this time. hematology recommends baby asa. (10) Cerebrovascular disease: (11) Memory loss: (12) Headache: (13) Vision loss: (14) Polyclonal gammopathy: (15) Cervical lymphadenopathy: Maternal Data Information ROMAINE Calculator Estimated Delivery Date Method Current WG Current Estimate 02/23/23 LMP (Certain) 38w 2d Other Estimates 02/25/23 Ultrasound #1 38w 0d Final ROMAINE: 02/23/23 Final ROMAINE Source: LMP Gestational age: 38 weeks 2 days Details Operative Information Date of Procedure: 02/11/23 Pre-Operative Diagnosis: 32 y/o @ 38 weeks 2 days, intrauterine growth restriction, intolerance to labor Post-Operative Diagnosis: 32 y/o @ 38 weeks 2 days, intrauterine growth restriction, intolerance to labor Classification: DOMINIC Procedure Type: low transverse steel pan form placing supervisor #1: Spencer Perez Type of Anesthesia: Epidural Antibiotic Given: Ancef 2 grams IV x1 and Zithromax 500 mg/5 mL X1 Estimated Blood Loss: 400cc Procedure Start Time: 16:41 Procedure Stop Time: 17:17 Time of Delivery: 16:45 Findings Description of Procedure: The patient is a 32 y/o G1 @ 38 weeks 2 days presented for primary for intolerance to labor. Epidural anesthesia was found to be adequate. Hoffman catheter was in place. The patient was placed in the dorsal supine position with leftward tilt. Patient was prepped and draped in the normal sterile fashion. Pfannenstiel skin incision was made with the scalpel and carried through to the underlying layer of fascia with the scalpel. Fascia was nicked in the midline and the incision extended laterally. The rectus bellies were dissected off superiorly and inferiorly with out complication both sharply and bluntly. The peritoneum was entered digitally. The incision was stretched and a low transverse uterine incision was made with the scalpel. The 's head was delivered atraumatically followed by the anterior and posterior shoulders without complication the rest of the delivered. The cord was clamped and cut and the was handed off to awaiting nurse. The placenta was delivered spontaneously immediately following and was noted to be intact and have a three-vessel cord. The uterus was exteriorized cleared of all clots and debris, and the incision was closed in a double layer closure using #1 Vicryl and #1Monocryl. The ovaries and fallopian tubes were noted to be within normal limits. The uterus was noted to be extremely boggy while closing despite pitocin and uterine massage. Methergine was administered intramuscularly and the uterus was massaged more for several minute. The uterus remained boggy. Hemabate was then give follwed by a a B-delatorre suture using the #1 monocryl suture. The uterus was returned to the maternal abdomen and gutters were cleared of all clots and debris. The peritoneum was closed with 3-0 Monocryl in a running fashion. Fascia was closed with 0 PDS in a running fashion. Subcutaneous tissue was copiously irrigated and the skin was closed with 3-0 Monocryl in a subcuticular fashion. Mepilex dressing was applied without complication. Patient was taken to recovery in stable condition. It was discussed with the patient that based on the clinical information obtained during this encounter, combined with her history, at this time I would recommend either repeat or trial of labor for future deliveries if further pregnancies are desired. Presentation: Positive for Vertex Amniotic Membrane Rupture Type: Artificial Time of Membrane Ruptured: 1320 Amniotic Fluid Description: Bloody Placental Delivery Description: Manual Removal Placenta Disposition: [facility] Cord Vessel Description: 3 Vessels Cord Entanglement: None A Gender: Female (1 minute): 8 (5 minute): 9 Delayed Cord Clamping: Yes Complications Risks of Surgery Discussed w/Patient: Bleeding, Anesthesia Risks, Infection and Injury to surrounding structure(s) including bowel and bladder Multi Select Codes Urinary/Genital Urinary/Genital CPT Codes: 25621 Delivery [facility]
[2023-02-11] MEDS: miSOPROStol 200 MCG Tablet 1000 MCG RC (17:23)
[2023-02-11] MEDS: Oxytocin 15 Units/NS 250ml 15 UNITS/250 ML IV.SOLN 83 UNITS IV (17:40)
[2023-02-11] MEDS: Acetaminophen 500 MG Tablet 1000 MG PO (19:09)
[2023-02-11] MEDS: Ketorolac 30 MG/ML Syringe IV (19:09)
[2023-02-11] MEDS: Lactated Ringers 1,000 ML 100 ML IV (20:55)
[2023-02-12] VITALS (12 sets, daily range): BP systolic 91–96; BP diastolic 50–63; PULSE 56–88; RESP 16–17; TEMP 36.7–37.2; O2SAT 99–100
[2023-02-12] MEDS: Acetaminophen 500 MG Tablet 1000 MG PO ×4 (00:54→19:30)
[2023-02-12] MEDS: Ketorolac 30 MG/ML Syringe IV ×3 (00:54→12:59)
--- NOTE | 2023-02-12 03:41 | DCINST_ITS ---
Discharge Instructions Diet Discharge Diet: No restrictions Activity Discharge Activity: May Not Drive (for 2 weeks or while taking narcotic pain medications.), May Shower and May Take a Tub Bath (in 7 days.) May resume sexual activity in: 4-6 weeks Weight Bearing Status: Full weight bearing Lifting Restrictions: 20 pounds Dressing / Incision Call your doctor if your incision/area has: Continuous Slow Oozing, Sudden Increased Bleeding, Increased Pain/ Swelling, Increased Redness and Foul Smelling Discharge Call your doctor if you observe: Fever of 101 or Higher and Using more than 1 pad per hour Suture Line Care: Avoid Pulling/Pushing and Avoid Pinching/Bending Cleanse incision/area with: Soap & Water and Keep Dressing Clean & Dry Follow Up Care Please Follow Up With: Tessa Davis DO When: Call [phone] to make an appointment for an incision check in 1-2 weeks. Test Results: Test results from this visit will be discussed in further detail at your follow- up appointment, if applicable. Discharge Plan Admission Admit Date/Time: 02/10/23 16:55 Primary Reason for Your Visit: section Attending Provider: Tessa Davis Discharge Orders/Prescriptions Prescriptions: New naproxen 500 mg tablet 500 mg PO BID PRN (Reason: pain) Qty: 30 0RF Continued calcium carbonate [Antacid (calcium carbonate)] 200 mg calcium (500 mg) tablet,chewable 200 mg PO DAILY hydroxychloroquine [Plaquenil] 200 mg tablet 200 mg PO DAILY ferrous sulfate [Feosol] 325 mg (65 mg iron) tablet 325 mg PO DAILY Mynatal Plus 65 mg iron- 1 mg tablet 1 tab PO DAILY aspirin [Aspirin Childrens] 81 mg tablet,chewable 1 tab PO DAILY Disposition Disposition (needs filled in before D/C Order can be placed): Home, Self Care
[2023-02-12] MEDS: Enoxaparin 40 MG/0.4 ML Syringe SC (05:14)
[2023-02-12 05:45] LABS: Hematocrit 26.8 % (37-47); Hemoglobin 9.1 g/dL (12.0-15.0); Mean Corpuscular Hgb 29.9 pg (27.0-32.0); Mean Corpuscular Volume 88.2 fL (81-99); Mean Platelet Vol. 10.1 fl (6.2-12.0); Platelet Count 189 K/mm3 (150-450); RBC Distribution Width CV 13.3 % (11.6-14.6); RBC Distribution Width SD 42.8 fl (35.1-43.9); Red Blood Count 3.04 M/mm3 (4.2-5.4); White Blood Count 10.9 K/mm3 (4.4-11.0)
--- NOTE | 2023-02-12 09:12 | PCM.PN.OB ---
Subjective Subjective Patient is laying in bed comfortably without complaints. She states that she slept on an off during the night. Lochia is mild and pain is minimal. She is unable to void this am but also does not feel the urge. Objective Data Objective Data Vital Signs: Vital Signs Temp Pulse Resp BP Pulse Ox O2 Del Method 98.1 F 61 16 95/53 L 100 Room Air 02/12/23 07:50 02/12/23 07:50 02/12/23 07:50 02/12/23 07:50 02/12/23 07:50 02/12/23 07:50 Oxygen Delivery Method Room Air Weight: 130 lb 15.273 oz Body Mass Index (BMI) 21.1 Intake & Output: Intake and Output for Last 24 Hours 02/10/23 02/11/23 02/12/23 23:59 23:59 23:59 Intake Total 5717.77 / 5717.77 658.33 / 658.33 Output Total 3500 / 3500 600 / 600 Balance 2217.77 / 2217.77 58.33 / 58.33 Lab / Micro Data 02/12/23 05:20 Labs: Laboratory Results - last 24 hr 02/12/23 05:20: WBC 10.9, RBC 3.04 L, Hgb 9.1 L, Hct 26.8 L, MCV 88.2, MCH 29.9, MCHC 34.0, RDW Std Deviation 42.8, RDW Coeff of Lisa 13.3, Plt Count 189, MPV 10.1 ROS Constitutional Constitutional: Reports systems reviewed and no addt'l complaints, except as documented Cardiovascular Cardiovascular: Denies chest pain, dizziness, dyspnea or irregular heart rhythm Respiratory/Chest Respiratory/Chest: Denies cough, pain on inspiration or shortness of breath at rest Gastrointestinal Gastrointestinal: Denies abdominal pain, nausea or vomiting Genitourinary Genitourinary: Denies burning urination Musculoskeletal Musculoskeletal: Denies muscle cramps, muscle spasms or muscle weakness Neurologic Neurologic: Denies confusion, dizziness, headache(s) or lack of coordination Psychiatric Psychiatric: Denies anxiety, behavioral changes or depression Physical Exam HEENT normocephalic Resp normal respiratory effort and normal air movement GI soft to palpation, non-tender and non-distended Rectal Exam: other Other Details: Incision is clean, dry, and intact no CVA tenderness Extremity normal to inspection General Extremity: edema bilateral (trace ) Assessment & Plan (1) Status post section routine follow-up: (2) Kikuchi disease: COMMENT: a rare, 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 (3) SLE (systemic lupus erythematosus): COMMENT: growth US q2 weeks, 35% at 23 weeks, 41% at 27 weeks. 29% and AC 1% at 31 wk. 20% and AC 5% at 33 wk. 2x weekly visits. NST on Mondays with office and BPP with MFM on . NSTs starting at 32 weeks, deliver @ 38-39 wks (4) Heterozygous factor V Leiden mutation: COMMENT: No Hx VTE- Per ACOG bulletin-no anticoagulation regiment at this time. hematology recommends baby asa. (5) Cerebrovascular disease: (6) Memory loss: (7) Headache: (8) Vision loss: (9) Polyclonal gammopathy: (10) Cervical lymphadenopathy: PLAN: Plan s/p LTCS PPD # 1 1. routine post care 2. breast feeding- support given 3. rh positive 4. rubella immune 5. lupus and kikuchi disease- continue follow up advice from rheumatology and oncology - may require more blood work (anti ro and la) to better guide pediatrics in infant monitoring 6. plan for dc to home tomorrow. 7. bladder scan this am and if more than 300 cc, drain urine via straight cath.
[2023-02-12] MEDS: Senna/Docusate Sodium 1 Tablet PO (09:52)
[2023-02-12] MEDS: Hydroxychloroquine 200 MG Tablet PO (09:52)
[2023-02-12] MEDS: 0.9% Saline Lock 10 ML Syringe IV (12:59)
[2023-02-12] MEDS: Ibuprofen 600 MG Tablet PO (19:29)
[2023-02-13 02:00] VITALS: BP 93/51; BP 93/52; PULSE 62; PULSE 65; RESP 16; TEMP 36.8; O2SAT 99
[2023-02-13] MEDS: Ibuprofen 600 MG Tablet PO ×2 (02:04→07:57)
[2023-02-13] MEDS: Acetaminophen 500 MG Tablet 1000 MG PO ×2 (02:04→07:58)
[2023-02-13] MEDS: Enoxaparin 40 MG/0.4 ML Syringe SC (06:34)
[2023-02-13 08:00] VITALS: BP 92/54; PULSE 80
[2023-02-13 08:01] VITALS: BP 92/54; PULSE 80; RESP 18; TEMP 36.7; O2SAT 100
[2023-02-13 08:02] VITALS: PULSE 69; O2SAT 100
[2023-02-13] MEDS: Hydroxychloroquine 200 MG Tablet PO (09:55)
--- NOTE | 2023-02-13 10:02 | DS.PCM_ITS ---
Providers Date of Admission: 02/10/23 Reason For Visit: PRIMARY Diagnosis Discharge Diagnosis (1) Status post section routine follow-up: Status: Acute Code(s): Z39.2 - Encounter for routine follow-up; Z98.891 - History of uterine scar from previous surgery (2) Kikuchi disease: Status: Acute Code(s): I88.1 - Chronic lymphadenitis, except mesenteric (3) SLE (systemic lupus erythematosus): Status: Chronic Code(s): M32.9 - Systemic lupus erythematosus, unspecified (4) Heterozygous factor V Leiden mutation: Status: Chronic Code(s): D68.51 - Activated protein C resistance (5) Cerebrovascular disease: Status: Acute Code(s): I67.9 - Cerebrovascular disease, unspecified (6) Memory loss: Status: Acute Code(s): R41.3 - Other amnesia (7) Headache: Status: Resolved Code(s): R51.9 - Headache, unspecified (8) Vision loss: Status: Acute Code(s): H54.7 - Unspecified visual loss (9) Polyclonal gammopathy: Status: Chronic Code(s): D89.0 - Polyclonal hypergammaglobulinemia (10) Cervical lymphadenopathy: Status: Resolved Code(s): R59.0 - Localized enlarged lymph nodes Plan s/p LTCS PPD # 1 1. routine post care 2. breast feeding- support given 3. rh positive 4. rubella immune 5. lupus and kikuchi disease- continue follow up advice from rheumatology and oncology - may require more blood work (anti ro and la) to better guide pediatrics in infant monitoring 6. plan for dc to home tomorrow. 7. bladder scan this am and if more than 300 cc, drain urine via straight cath. Medications at Discharge Home Medications calcium carbonate 200 mg calcium (500 mg) chewable tablet (Antacid (calcium carbonate)) 200 mg PO DAILY heartburn 12/01/21 hydroxychloroquine 200 mg tablet (Plaquenil) 200 mg PO DAILY lupus 02/15/22 aspirin 81 mg chewable tablet (Aspirin Childrens) 1 tab PO DAILY factor 5 01/10/23 ferrous sulfate 325 mg (65 mg iron) tablet (Feosol) 325 mg PO DAILY anemia 01/10/23 vitamins-iron fumarate 65 mg iron-folic acid 1 mg tablet (Mynatal Plus) 1 tab PO DAILY 01/10/23 naproxen 500 mg tablet 500 mg PO BID PRN pain #30 tabs 02/12/23 enoxaparin 40 mg/0.4 mL subcutaneous syringe (Lovenox) 40 mg (0.4 mL) subcut DAILY 6 weeks #16.8 mL 02/13/23 Hospital Course Operations None and section Summary of Care Provided Minutes Spent on Discharge: 30 Hospital Course: The patient was admitted for induction of labor 02/10/23 for IUGR and finding of echogenic bowel on ultrasound on this day. She progressed to 6 cm on 02/11/23, however the tracing showed signs of distress and the decision was made to proceed with urgent section the evening of 02/11/23. There were no complications. On day #1 she was tolerating pain well and ambulating, on day #2 she was ready for discharge. Physical Exam HEENT normocephalic Resp normal respiratory effort and normal air movement GI soft to palpation, non-tender and non-distended Rectal Exam: other Other Details: Incision is clean, dry, and intact no CVA tenderness Extremity normal to inspection General Extremity: edema bilateral (trace ) Weight / BMI Weight Weight: 130 lb 15.273 oz Body Mass Index (BMI) 21.1 ABG / Lab / Microbiology Data 02/12/23 05:20 D/C Instructions Discharge Diet: No restrictions Discharge Activity: May Not Drive (for 2 weeks or while taking narcotic pain med ications.), May Shower and May Take a Tub Bath (in 7 days.) May resume sexual activity in: 4-6 weeks Weight Bearing Status: Full weight bearing Lifting Restrictions: 20 pounds Call your doctor if your incision/area has: Continuous Slow Oozing, Sudden Increased Bleeding, Increased Pain/ Swelling, Increased Redness and Foul Smelling Discharge Call your doctor if you observe: Fever of 101 or Higher and Using more than 1 pad per hour Suture Line Care: Avoid Pulling/Pushing and Avoid Pinching/Bending Cleanse incision/area with: Soap & Water and Keep Dressing Clean & Dry Please Follow Up With: Tessa Davis DO When: Call [phone] to make an appointment for an incision check in 1-2 weeks. Meaningful Use Info Meaningful Use Diagnoses (Choose all that apply): None applicable Discharge Plan Admission Admit Date/Time: 02/10/23 16:55 Primary Reason for Your Visit: section Attending Provider: Tessa Davis Discharge Orders/Prescriptions Prescriptions: New naproxen 500 mg tablet 500 mg PO BID PRN (Reason: pain) Qty: 30 0RF enoxaparin [Lovenox] 40 mg/0.4 mL syringe 40 mg subcut DAILY 42 Days Qty: 16.8 1RF Continued calcium carbonate [Antacid (calcium carbonate)] 200 mg calcium (500 mg) tablet,chewable 200 mg PO DAILY hydroxychloroquine [Plaquenil] 200 mg tablet 200 mg PO DAILY ferrous sulfate [Feosol] 325 mg (65 mg iron) tablet 325 mg PO DAILY Mynatal Plus 65 mg iron- 1 mg tablet 1 tab PO DAILY aspirin [Aspirin Childrens] 81 mg tablet,chewable 1 tab PO DAILY Disposition Disposition (needs filled in before D/C Order can be placed): Home, Self Care
== END 2023-02-13 11:55 | disposition home or self-care (01) | DRG 786 ==
PROVIDERS: Admitting Provider Obstetrics & Gynecology; Referring Provider Obstetrics & Gynecology; Visit Provider Obstetrics & Gynecology
DX: O76 Abnormality in fetal heart rate and rhythm complicating labor and delivery (principal); O99.42 Diseases of the circulatory system complicating childbirth; O99.12 Other diseases of the blood and blood-forming organs and certain disorders involving the immune mechanism complicating childbirth; D68.51 Activated protein C resistance; M41.86 Other forms of scoliosis, lumbar region; D89.0 Polyclonal hypergammaglobulinemia; M32.9 Systemic lupus erythematosus, unspecified; I88.1 Chronic lymphadenitis, except mesenteric; O36.5930 Maternal care for other known or suspected poor fetal growth, third trimester, not applicable or unspecified; O99.892 Other specified diseases and conditions complicating childbirth; O35.8XX0 Maternal care for other (suspected) fetal abnormality and damage, not applicable or unspecified; N85.8 Other specified noninflammatory disorders of uterus; Z37.0 Single live birth; Z3A.38 38 weeks gestation of pregnancy; Z79.82 Long term (current) use of aspirin
CPT/HCPCS: 59025; 59050; 85025; 85027; 86780; 86850; 86900; 86901; 99221; J7120; A4216; G0378; J2405

== ENCOUNTER → 2023-03-14 | Outpatient (CLI) | payer OTHER, SELFPAY ==
[2023-03-14 12:35] LABS: Erythrocyte Sedimentation Rate 38 mm/hr (0-30)
[2023-03-14 12:37] LABS: Absolute Lymphocyte Count 1.38 X10^3/uL (0.83-4.51); Absolute Neutrophil Count 2.2 X10^3/uL (2.0-7.7); Basophil# 0.03 X10^3/uL; Basophil% 0.7 % (0-1); Eosinophil# 0.08 X10^3/uL; Eosinophils% 1.9 % (0-5); Hematocrit 39.2 % (37-47); Hemoglobin 12.4 g/dL (12.0-15.0); Lymphocyte # 1.38 X10^3/ul (0.83-4.51); Lymphocyte % 33.3 % (19-41); Mean Corp Hgb Conc 31.6 g/dL (32-36); Mean Corpuscular Hgb 28.6 pg (27.0-32.0); Mean Corpuscular Volume 90.5 fL (81-99); Mean Platelet Vol. 10.4 fl (6.2-12.0); Monocyte# 0.48 X10^3/uL; Monocyte% 11.6 % (0-10); NRBC Flagged by Analyzer 0 % (0-5); Neutrophil # 2.17 X10^3/uL (2.7-7.7); Neutrophil % 52.3 % (47-70); Platelet Count 308 K/mm3 (150-450); RBC Distribution Width CV 12.9 % (11.6-14.6); RBC Distribution Width SD 42.9 fl (35.1-43.9); Red Blood Count 4.33 M/mm3 (4.2-5.4); White Blood Count 4.2 K/mm3 (4.4-11.0)
[2023-03-14 12:48] LABS: Color, Urine Yellow (Yellow); Glucose, Dipstick Normal (Normal); Ketone-Dipstick Negative (Negative); Leukocyte Esterase-Dipstick Negative /ul (Negative); Nitrite-Dipstick Negative (Negative); Occult Blood-Urine 25 /ul (Negative); Protein-Dipstick Negative (Negative); Specific Gravity, Urine 1.015 (1.002-1.030); Urine Bilirubin Dipstick Negative (Negative); Urine Clarity Sl. Cloudy (Clear); Urine Urobilinogen Normal (Normal)
[2023-03-14 13:04] LABS: Protein, Urine (Random) 18.7 mg/dL (<11.9); Protein:Creat Ratio 135 mg/g CRE (0-200)
[2023-03-14 13:42] LABS: ALB/GLOB Ratio 0.8 RATIO (0.9-2.4); AST(SGOT) 18 U/L (15-37); Alanine Aminotransfer ALT/SGPT 27 U/L (13-56); Albumin, Serum 3.5 g/dL (3.2-5.0); Alkaline Phosphatase 90 U/L (45-117); Anion Gap 5 (5-15); BUN 11 mg/dL (7-18); BUN/Creat Ratio 11.8 RATIO (10-20); CRP < 2.90 mg/L (0.0-3.0); Chloride 110 mmol/L (98-107); Creatinine, Serum 0.93 mg/dL (0.55-1.02); EST Glomerular Filtration Rate 74 mL/min (>60); Est Glom Filt Rate - Afr Amer 89 mL/min (>60); Globulin 4.4 g/dL (2.2-4.2); Glucose 61 mg/dL (74-106); Potassium 3.6 mmol/L (3.5-5.1); Protein, Total 7.9 g/dL (6.4-8.2); Sodium Level 141 mmol/L (136-145)
[2023-03-16 04:08] LABS: Complement C3 117 mg/dL (82-167)
[2023-03-16 12:09] LABS: Anti-dsDNA Ab 9 IU/mL (0-9)
== END | disposition home or self-care (01) ==
PROVIDERS: PCP Internal Medicine; Referring Provider Internal Medicine Rheumatology; Visit Provider Internal Medicine Rheumatology
DX: M32.9 Systemic lupus erythematosus, unspecified (principal); Z79.899 Other long term (current) drug therapy
CPT/HCPCS: 36415; 80053; 81002; 82570; 84156; 85025; 85652; 86140; 86160; 86225

== ENCOUNTER → 2023-09-12 | Outpatient (CLI) | payer OTHER, SELFPAY ==
[2023-09-12 17:48] LABS: Absolute Lymphocyte Count 1.64 X10^3/uL (0.83-4.51); Basophil# 0.02 X10^3/uL; Basophil% 0.5 % (0-1); Eosinophils% 2.4 % (0-5); Hemoglobin 11.8 g/dL (12.0-15.0); Lymphocyte # 1.64 X10^3/ul (0.83-4.51); Lymphocyte % 39.6 % (19-41); Mean Corp Hgb Conc 31.9 g/dL (32-36); Mean Corpuscular Hgb 26.7 pg (27.0-32.0); Mean Corpuscular Volume 83.7 fL (81-99); Mean Platelet Vol. 10.5 fl (6.2-12.0); Monocyte% 9.7 % (0-10); NRBC Flagged by Analyzer 0 % (0-5); Neutrophil # 1.97 X10^3/uL (2.7-7.7); Neutrophil % 47.6 % (47-70); Platelet Count 296 K/mm3 (150-450); RBC Distribution Width CV 12.6 % (11.6-14.6); RBC Distribution Width SD 38.5 fl (35.1-43.9); Red Blood Count 4.42 M/mm3 (4.2-5.4); White Blood Count 4.1 K/mm3 (4.4-11.0)
[2023-09-12 18:06] LABS: Color, Urine Yellow (Yellow); Glucose, Dipstick Normal (Normal); Ketone-Dipstick Negative (Negative); Leukocyte Esterase-Dipstick Negative /ul (Negative); Nitrite-Dipstick Negative (Negative); Occult Blood-Urine Negative /ul (Negative); Protein-Dipstick Negative (Negative); Urine Bilirubin Dipstick Negative (Negative); Urine Clarity Clear (Clear); Urine Urobilinogen Normal (Normal)
[2023-09-12 18:09] LABS: Protein, Urine (Random) 19.8 mg/dL (<11.9); Protein:Creat Ratio 189 mg/g CRE (0-200)
[2023-09-12 18:12] LABS: Erythrocyte Sedimentation Rate 21 mm/hr (0-30)
[2023-09-12 18:50] LABS: ALB/GLOB Ratio 0.9 RATIO (0.9-2.4); AST(SGOT) 19 U/L (15-37); Alanine Aminotransfer ALT/SGPT 16 U/L (13-56); Albumin, Serum 3.7 g/dL (3.2-5.0); Alkaline Phosphatase 83 U/L (45-117); Anion Gap 8 (5-15); BUN 11 mg/dL (7-18); BUN/Creat Ratio 14.2 RATIO (10-20); CRP < 2.90 mg/L (0.0-3.0); Chloride 107 mmol/L (98-107); Creatinine, Serum 0.77 mg/dL (0.55-1.02); EST Glomerular Filtration Rate 91 mL/min (>60); Est Glom Filt Rate - Afr Amer 110 mL/min (>60); Globulin 4.1 g/dL (2.2-4.2); Glucose 86 mg/dL (74-106); Potassium 3.9 mmol/L (3.5-5.1); Protein, Total 7.8 g/dL (6.4-8.2); Sodium Level 138 mmol/L (136-145)
[2023-09-14 05:07] LABS: Complement C3 95 mg/dL (82-167)
[2023-09-14 12:09] LABS: Anti-dsDNA Ab 7 IU/mL (0-9)
== END | disposition home or self-care (01) ==
PROVIDERS: PCP Internal Medicine; Referring Provider Internal Medicine Rheumatology; Visit Provider Internal Medicine Rheumatology
DX: M32.9 Systemic lupus erythematosus, unspecified (principal); Z79.899 Other long term (current) drug therapy
CPT/HCPCS: 36415; 80053; 81002; 82570; 84156; 85025; 85652; 86140; 86160; 86225

== ENCOUNTER → 2024-02-21 | Outpatient (CLI) | payer OTHER, SELFPAY ==
[2024-02-21 17:51] LABS: Absolute Neutrophil Count 2.3 X10^3/uL (2.0-7.7); Basophil# 0.02 X10^3/uL; Basophil% 0.4 % (0-1); Eosinophil# 0.04 X10^3/uL; Eosinophils% 0.8 % (0-5); Hematocrit 36.4 % (37-47); Hemoglobin 11.6 g/dL (12.0-15.0); Lymphocyte % 43.4 % (19-41); Mean Corp Hgb Conc 31.9 g/dL (32-36); Mean Corpuscular Hgb 26.5 pg (27.0-32.0); Mean Corpuscular Volume 83.1 fL (81-99); Mean Platelet Vol. 10.2 fl (6.2-12.0); Monocyte# 0.42 X10^3/uL; Monocyte% 8.7 % (0-10); NRBC Flagged by Analyzer 0 % (0-5); Neutrophil # 2.25 X10^3/uL (2.7-7.7); Neutrophil % 46.5 % (47-70); Platelet Count 277 K/mm3 (150-450); RBC Distribution Width CV 12.6 % (11.6-14.6); RBC Distribution Width SD 38.1 fl (35.1-43.9); Red Blood Count 4.38 M/mm3 (4.2-5.4); White Blood Count 4.8 K/mm3 (4.4-11.0)
[2024-02-21 17:59] LABS: Color, Urine Yellow (Yellow); Glucose, Dipstick Normal (Normal); Ketone-Dipstick Negative (Negative); Leukocyte Esterase-Dipstick 25 /ul (Negative); Nitrite-Dipstick Negative (Negative); Occult Blood-Urine Negative /ul (Negative); Protein-Dipstick 15 mg/dl (Negative); Urine Bilirubin Dipstick Negative (Negative); Urine Clarity Clear (Clear); Urine Urobilinogen Normal (Normal)
[2024-02-21 18:12] LABS: Erythrocyte Sedimentation Rate 17 mm/hr (0-30)
[2024-02-21 18:23] LABS: ALB/GLOB Ratio 0.9 RATIO (0.9-2.4); AST(SGOT) 12 U/L (15-37); Alanine Aminotransfer ALT/SGPT 16 U/L (13-56); Albumin, Serum 3.8 g/dL (3.2-5.0); Alkaline Phosphatase 77 U/L (45-117); Anion Gap 4 (5-15); BUN 13 mg/dL (7-18); BUN/Creat Ratio 15.3 RATIO (10-20); CRP < 2.90 mg/L (0.0-3.0); Calcium,Total 9.2 mg/dL (8.5-10.1); Chloride 110 mmol/L (98-107); Creatinine, Serum 0.85 mg/dL (0.55-1.02); EST Glomerular Filtration Rate 81 mL/min (>60); Est Glom Filt Rate - Afr Amer 98 mL/min (>60); Globulin 4.2 g/dL (2.2-4.2); Glucose 77 mg/dL (74-106); Potassium 3.3 mmol/L (3.5-5.1); Sodium Level 137 mmol/L (136-145)
[2024-02-21 18:32] LABS: Protein:Creat Ratio 146 mg/g CRE (0-200)
[2024-02-23 08:10] LABS: Complement C3 95 mg/dL (82-167)
[2024-02-23 12:08] LABS: Anti-dsDNA Ab 5 IU/mL (0-9)
== END | disposition home or self-care (01) ==
LOC: MTLAB 15:34
PROVIDERS: PCP Internal Medicine; Referring Provider Internal Medicine Rheumatology; Visit Provider Internal Medicine Rheumatology
DX: M32.9 Systemic lupus erythematosus, unspecified (principal); R59.0 Localized enlarged lymph nodes; D89.0 Polyclonal hypergammaglobulinemia; Z79.899 Other long term (current) drug therapy
CPT/HCPCS: 36415; 80053; 81002; 82570; 84156; 85025; 85652; 86140; 86160; 86225

== ENCOUNTER → 2024-08-08 | Outpatient (CLI) | payer OTHER, SELFPAY ==
[2024-08-08 10:17] LABS: Absolute Lymphocyte Count 1.84 X10^3/uL (0.83-4.51); Absolute Neutrophil Count 2.2 X10^3/uL (2.0-7.7); Basophil# 0.03 X10^3/uL; Basophil% 0.6 % (0-1); Eosinophil# 0.08 X10^3/uL; Eosinophils% 1.7 % (0-5); Hematocrit 36.8 % (37-47); Hemoglobin 11.6 g/dL (12.0-15.0); Lymphocyte # 1.84 X10^3/ul (0.83-4.51); Lymphocyte % 39.6 % (19-41); Mean Corp Hgb Conc 31.5 g/dL (32-36); Mean Corpuscular Volume 82.5 fL (81-99); Mean Platelet Vol. 10.5 fl (6.2-12.0); Monocyte# 0.47 X10^3/uL; Monocyte% 10.1 % (0-10); NRBC Flagged by Analyzer 0 % (0-5); Neutrophil # 2.22 X10^3/uL (2.7-7.7); Neutrophil % 47.8 % (47-70); Platelet Count 275 K/mm3 (150-450); RBC Distribution Width CV 13.7 % (11.6-14.6); Red Blood Count 4.46 M/mm3 (4.2-5.4); White Blood Count 4.7 K/mm3 (4.4-11.0)
[2024-08-08 10:18] LABS: Color, Urine Yellow (Yellow); Glucose, Dipstick Normal (Normal); Ketone-Dipstick Negative (Negative); Leukocyte Esterase-Dipstick 25 /ul (Negative); Nitrite-Dipstick Negative (Negative); Occult Blood-Urine Negative /ul (Negative); Protein-Dipstick 15 mg/dl (Negative); Specific Gravity, Urine 1.015 (1.002-1.030); Urine Bilirubin Dipstick Negative (Negative); Urine Clarity Clear (Clear); Urine Urobilinogen Normal (Normal); Urine pH 6.5 (5.0 - 8.0)
[2024-08-08 10:31] LABS: Erythrocyte Sedimentation Rate 24 mm/hr (0-30)
[2024-08-08 10:40] LABS: ALB/GLOB Ratio 1.2 RATIO (0.9-2.4); AST(SGOT) 23 U/L (<=31); Alanine Aminotransfer ALT/SGPT 13 U/L (<=34); Albumin, Serum 4.2 g/dL (3.5-5.0); Alkaline Phosphatase 61 U/L (35-104); Anion Gap 11 (5-15); BUN 14 mg/dL (4-19); BUN/Creat Ratio 16.6 RATIO (10-20); Calcium,Total 9.1 mg/dL (7.6-11.0); Carbon Dioxide 22.3 mmol/L (21.0-32.0); Chloride 105 mmol/L (98-108); Creatinine, Serum 0.85 mg/dL (0.70-1.20); EST Glomerular Filtration Rate 92 (>60); Globulin 3.6 g/dL (2.2-4.2); Glucose 61 mg/dL (70-99); Potassium 3.8 mmol/L (3.3-5.1); Protein, Total 7.8 g/dL (5.9-8.4); Sodium Level 138 mmol/L (133-145)
[2024-08-08 10:41] LABS: CRP < 3.00 mg/L (0.0-3.0)
[2024-08-08 10:53] LABS: Protein, Urine (Random) 20.7 mg/dL (0.0-12.0); Protein:Creat Ratio 84 mg/g CRE (0-200)
[2024-08-09 08:09] LABS: Complement C3 105 mg/dL (82-167)
[2024-08-09 11:09] LABS: Anti-dsDNA Ab 7 IU/mL (0-9)
== END | disposition home or self-care (01) ==
LOC: MTLAB 08:48
PROVIDERS: PCP Internal Medicine; Referring Provider Internal Medicine Rheumatology; Visit Provider Internal Medicine Rheumatology
DX: M32.9 Systemic lupus erythematosus, unspecified (principal); Z79.899 Other long term (current) drug therapy
CPT/HCPCS: 36415; 80053; 81002; 82570; 84156; 85025; 85652; 86140; 86160; 86225

== ENCOUNTER → 2025-02-08 | Outpatient (CLI) | payer OTHER, SELFPAY ==
[2025-02-08 10:15] LABS: Color, Urine Yellow (Yellow); Glucose, Dipstick Normal (Normal); Ketone-Dipstick Negative (Negative); Leukocyte Esterase-Dipstick Negative /ul (Negative); Nitrite-Dipstick Negative (Negative); Occult Blood-Urine 250 /ul (Negative); Protein-Dipstick Negative (Negative); Specific Gravity, Urine 1.010 (1.002-1.030); Urine Bilirubin Dipstick Negative (Negative)
[2025-02-08 10:25] LABS: Hematocrit 39.3 % (37-47); Hemoglobin 12.3 g/dL (12.0-15.0); Immature Granulocytes Count 0.010 X10^3/uL (0.0-0.0); Mean Corp Hgb Conc 31.3 g/dL (32-36); Mean Corpuscular Volume 84.5 fL (81-99); Mean Platelet Vol. 10.3 fl (6.2-12.0); NRBC Flagged by Analyzer 0 % (0-5); Platelet Count 375 K/mm3 (150-450); RBC Distribution Width CV 13.2 % (11.6-14.6); RBC Distribution Width SD 40.5 fl (35.1-43.9); Red Blood Count 4.65 M/mm3 (4.2-5.4); White Blood Count 4.6 K/mm3 (4.4-11.0)
[2025-02-08 10:53] LABS: Creatinine, Urine (random) 122.00 mg/dL (28.00-217.00); Protein, Urine (Random) 13.5 mg/dL (0.0-12.0); Protein:Creat Ratio 111 mg/g CRE (0-200)
[2025-02-08 11:02] LABS: AST(SGOT) 22 U/L (<=31); Alanine Aminotransfer ALT/SGPT 14 U/L (<=34); Albumin, Serum 4.6 g/dL (3.5-5.0); Alkaline Phosphatase 65 U/L (35-104); Anion Gap 11 (5-15); BUN 11 mg/dL (4-19); BUN/Creat Ratio 13.3 RATIO (10-20); Calcium,Total 9.7 mg/dL (7.6-11.0); Carbon Dioxide 25.6 mmol/L (21.0-32.0); Chloride 104 mmol/L (98-108); Globulin 4.1 g/dL (2.2-4.2); Glucose 82 mg/dL (70-99); Potassium 3.8 mmol/L (3.3-5.1)
[2025-02-08 11:07] LABS: CRP < 3.00 mg/L (0.0-3.0)
[2025-02-11 13:08] LABS: Anti-dsDNA Ab 7 IU/mL (0-9)
== END | disposition home or self-care (01) ==
LOC: MTLAB 07:55
PROVIDERS: PCP Internal Medicine; Referring Provider Internal Medicine Rheumatology; Visit Provider Internal Medicine Rheumatology
DX: M32.9 Systemic lupus erythematosus, unspecified (principal); Z79.899 Other long term (current) drug therapy
CPT/HCPCS: 36415; 80053; 81002; 82570; 84156; 85025; 85652; 86140; 86160; 86225